=== PATIENT | male | born 1985 | race African-American/Black ===

== ENCOUNTER 2016-06-17 14:40 | Inpatient (IN) | payer OTHER ==
--- NOTE | 2016-06-17 14:48 | PDOC ---
History of Present Illness - History of Present Illness Initial Comments: 06/17/16 16:43 The patient is a 30 year old male, with a significant past medical history of IDDM, hypertension, CHF with low ejection fraction, cardiomyopathy, and GERD, who presents to the emergency department with loss of appetite, nausea, and vomiting for 2 days. He states he woke up yesterday feeling nauseous. The patient states he had not eaten since yesterday, but attempted to drink an ounce of apple juice early this morning and began vomiting shortly after. He reports numerou episodes of vomiting which he states just feels like burning. He denies abdominal pain, but reports burning in his chest and throat from vomiting. The patient reports having an endoscopy about 2 years ago which was negative for ulcers. He denies exertional chest pain, shortness of breath, headache and dizziness. He denies fever, chills, diarrhea and constipation. He denies dysuria, frequency , urgency and hematuria. Allergies: NKDA Past surgical history: none PCP - Dr. Melvin Nance Petrography Teacher - Dr. Randhawa <Lili Gutierrez - Last Filed: 06/17/16 16:43> - General History Source: Patient Exam Limitations: No Limitations <Dawson Barry - Last Filed: 06/18/16 08:32> - General Stated Complaint: Nausea/Vomiting Time Seen by Provider: 06/17/16 14:48 Past History <Lili Gutierrez - Last Filed: 06/17/16 16:43> - Past Medical History Asthma: Yes Cardiac Disorders: Yes CHF: Yes Diabetes: Yes HTN: Yes Suicide Attempt (Hx): No - Surgical History Cardiac Surgery: Yes (defibrillator) - Psycho/Social/Smoking Cessation Hx Anxiety: No Suicidal Ideation: No Smoking History: Never smoked Have you smoked in the past 12 months: No Hx Alcohol Use: Yes (Periodic binging) Drug/Substance Use Hx: (Denied) Substance Use Type: Marijuana Hx Substance Use Treatment: Yes (He indicated that he drinks socially.) <Dawson Barry - Last Filed: 06/18/16 08:32> - Past Medical History Allergies/Adverse Reactions: Allergies Allergy/AdvReac Type Severity Reaction Status Date / Time shellfish derived Allergy Verified 06/17/16 15:39 amoxicillin [Amoxicillin] AdvReac Verified 06/17/16 15:39 allupent Allergy Uncoded 06/17/16 15:39 Home Medications: Ambulatory Orders Amlodipine Besylate [Norvasc -] 10 mg PO DAILY 06/17/16 Aspirin [ASA -] 81 mg PO DAILY 06/17/16 Carvedilol 25 mg PO DAILY 06/17/16 Esomeprazole Magnesium [Nexium 24Hr] 40 mg PO DAILY 06/17/16 Furosemide [Lasix] 80 mg PO DAILY 06/17/16 Hydralazine HCl 100 mg PO BID 06/17/16 Hydrochlorothiazide 25 mg PO DAILY 06/17/16 Magnesium Oxide [Magox 400] 400 mg PO DAILY 06/17/16 Metoclopramide HCl 10 mg PO TID 06/17/16 Nebivolol HCl [Bystolic] 10 mg PO DAILY 06/17/16 Potassium Chloride 20 meq PO DAILY 06/17/16 Review of Systems - Review of Systems Able to Perform ROS?: Yes Comments:: 06/17/16 16:43 CONSTITUTIONAL: No reported: Fever, Chills, Diaphoresis, Generalized Weakness, Malaise, Loss of Appetite HEENT: No reported: Rhinorrhea, Nasal Congestion, Throat Pain, Throat Swelling, Difficulty Swallowing, Mouth Swelling, Ear Pain, Eye Pain, Visual Changes CARDIOVASCULAR: No reported: Chest Pain, Syncope, Palpitations, Irregular Heart Rate, Lightheadedness, Peripheral Edema RESPIRATORY: No reported: Cough, Shortness of Breath, SOB with Exertion, Orthopnea, Wheezing , Stridor, Hemoptysis GASTROINTESTINAL: No reported: Abdominal pain, Abdominal Distension, Nausea, Vomiting, Diarrhea, Constipation, Melena, Hematochezia GENITOURINARY: No reported: Dysuria, Frequency, Urgency, Hesitancy, Flank Pain, Genital Pain MUSCULOSKELETAL: No reported: Myalgia, Arthralgia, Joint Swelling, Back pain, Neck Pain SKIN: No reported: Rash, Itching, Pallor HEMEATOLOGIC/IMMUNOLOGIC: No reported: Easy Bleeding, Easy Bruising, Lymphadenopathy, Frequent infections ENDOCRINE: No reported: Unexplained Weight Gain, Unexplained Weight Loss, Heat Intolerance , Cold Intolerance NEUROLOGIC: No reported: Headache, Focal Weakness, Paresthesias, Vertigo, Lightheadedness, Unsteady Gait, Seizure, Mental Status Changes, Incontinence PSYCHIATRIC: No reported: Anxiety, Depression <Lili Gutierrez - Last Filed: 06/17/16 16:43> *Physical Exam - Vital Signs Last Vital Signs Temp Pulse Resp BP Pulse Ox 99.1 F 97 H 20 137/70 98 06/17/16 15:00 06/17/16 15:00 06/17/16 15:00 06/17/16 15:00 06/17/16 15:00 - Physical Exam Comments: 06/17/16 16:44 GENERAL: The patient is morbidly obese, awake, alert, and fully oriented, Nontoxic - in no acute distress. HEAD: Normocephalic, atraumatic. EYES: extraocular movements intact, sclera anicteric, conjunctiva clear. ENT: Normal voice, Moist mucous membranes. NECK: Normal range of motion, supple LUNGS: Breath sounds equal, clear to auscultation bilaterally. No wheezes, no rhonchi, no rales. HEART: Regular rate and rhythm, without murmur, rub or gallop. ABDOMEN: Soft, nontender, normoactive bowel sounds. No guarding, no rebound.No CVA tenderness EXTREMITIES: (+) 2+ edema in bilateral lower extremities. Normal range of motion , No clubbing or cyanosis. No cords, erythema, or tenderness. NEUROLOGICAL: No facial assymetry, Normal speech, PSYCH: Normal mood, normal affect. SKIN: Warm, Dry, normal turgor, <Lili Gutierrez - Last Filed: 06/17/16 16:43> ED Treatment Course - Medications Given in the ED: ED Medications Discontinued Medications Generic Name Dose Route Start Last Admin Trade Name Freq PRN Reason Stop Dose Admin Al Hydroxide/Mg Hydroxide 30 ml 06/17/16 15:23 06/17/16 15:54 Mylanta Suspension - PO 06/17/16 15:24 30 ml ONCE ONE Administration Sodium Chloride 1,000 mls @ 1,000 mls/hr 06/17/16 14:49 06/17/16 15:54 Normal Saline - IV 06/17/16 15:48 1,000 mls/hr .Q1H ONE Administration Pantoprazole Sodium 40 mg/ 100 mls @ 200 mls/hr 06/17/16 15:23 06/17/16 15:54 Sodium Chloride IVPB 06/17/16 15:52 200 mls/hr ONCE ONE Administration Ondansetron HCl 4 mg 06/17/16 14:49 06/17/16 15:54 Zofran Injection IVPB 06/17/16 14:50 4 mg ONCE ONE Administration <Lili Gutierrez - Last Filed: 06/17/16 16:43> - LABORATORY CBC & Chemistry Diagram: 06/17/16 15:55 06/17/16 15:55 <Dawson Barry - Last Filed: 06/18/16 08:32> Medical Decision Making - Medical Decision Making 06/17/16 15:27 30y M hx of htn, gastritis, chf, presents with complaint of 1 day of naausea/ vomiting/ burning pain c/w with prior episdoes of same - had been evlauted by GI in the past and had endoscopy. denies any fever/chills, diarrhea, abd pain. on exam pt in no distress, abd soft nontender suspect gastritis, ?pancreatitis no tenderness to suggest acute intrabdominal process will obtain labs will give protonix, maalox, fluids 06/17/16 17:05 labs reviewed pt states he is feeling better lipase noted slightly above normal, however the pt denies any current pain. ? possible early pancreatitis discussed with the pt of nasir barry for further management or can PO challenge and see how he does - the pt states he would like to trial PO and see how he does. the pt was signed out out to dr. silva to reassess the patient <Dawson Barry - Last Filed: 06/18/16 08:32> *DC/Admit/Observation/Transfer - Attestations Scribe Attestion: 06/17/16 16:44 Documentation prepared by Lili Gutierrez, acting as medical assembler for Dawson Barry MD, <Lili Gutierrez - Last Filed: 06/17/16 16:43> <Dawson Barry - Last Filed: 06/18/16 08:32> Diagnosis at time of Disposition: Pancreatitis - Discharge Dispostion Condition at time of disposition: Stable
[2016-06-17] MEDS ORDERED: ONDANSETRON 4 MG/2 ML VIAL IVPB ONE ×2 (14:49→18:47)
[2016-06-17] MEDS ORDERED: SODIUM CHLORIDE 1,000 ML IV ONE (14:49)
[2016-06-17] MEDS ORDERED: PANTOPRAZOLE SODIUM 40 MG in SODIUM CHLORIDE 100 ML IVPB ONE (15:23)
[2016-06-17] MEDS ORDERED: MAG HYDROX/AL HYDROX/SIMETH 355 ML ORAL.SUSP PO ONE (15:23)
[2016-06-17] MEDS ORDERED: MAG HYDROX/AL HYDROX/SIMETH 30 ML UNIT-DOSE CUP ONE ×2 (15:48→15:51)
[2016-06-17] MEDS ORDERED: PANTOPRAZOLE SODIUM 100 ML IVPB ONE (15:48)
[2016-06-17] MEDS ORDERED: ONDANSETRON 4 MG/2 ML VIAL ONE ×2 (15:48→18:50)
[2016-06-17 16:47] LABS: BASOPHIL 0.4 % (0-2.0); EOSINOPHIL 0.2 % (0-4.5); MCH 28.2 pg (25.7-33.7); MCHC 33.1 g/dl (32.0-35.9); MEAN CELL VOLUME 85.4 fl (80-96); MEAN PLT VOLUME 8.3 fl (7.5-11.1); NEUTROPHILS 81.2 % (42.8-82.8); PLATELET COUNT 243 K/MM3 (134-434); RDW 13.6 % (11.9-15.9); WHITE BLOOD COUNT 11.1 K/mm3 (4.0-10.0)
[2016-06-17 17:20] LABS: ALBUMIN 3.1 g/dl (3.4-5.0); ANION GAP 14 (8-16); CALCIUM 9.2 mg/dL (8.5-10.1); CO2 28 mmol/L (21-32); CREATININE 1.3 mg/dL (0.7-1.3); GLUCOSE,RANDOM 256 mg/dL (74-106); SGOT/AST 14 U/L (15-37); SGPT/ALT 12 U/L (12-78)
[2016-06-17 17:21] LABS: ALK PHOS 109 U/L (45-117); BILIRUBIN,TOTAL 0.6 mg/dL (0.2-1.0); TOT PROT 8.9 g/dl (6.4-8.2)
--- NOTE | 2016-06-17 19:23 | PDOC ---
*Physical Exam - Vital Signs Last Vital Signs Temp Pulse Resp BP Pulse Ox 99.1 F 97 H 20 137/70 98 06/17/16 15:00 06/17/16 15:00 06/17/16 15:00 06/17/16 15:00 06/17/16 15:00 ED Treatment Course - LABORATORY CBC & Chemistry Diagram: 06/17/16 15:55 06/17/16 15:55 - ADDITIONAL ORDERS Additional order review: Laboratory Results 06/17/16 15:55 Sodium 135 L Potassium 4.2 Chloride 93 L Carbon Dioxide 28 Anion Gap 14 BUN 20 H Creatinine 1.3 Creat Clearance w eGFR > 60 Random Glucose 256 H D Calcium 9.2 Total Bilirubin 0.6 AST 14 L D ALT 12 Alkaline Phosphatase 109 Total Protein 8.9 H Albumin 3.1 L Lipase 616 H 06/17/16 15:55 RBC 4.49 MCV 85.4 MCHC 33.1 RDW 13.6 MPV 8.3 Neutrophils % 81.2 Lymphocytes % 11.5 Monocytes % 6.7 Eosinophils % 0.2 D Basophils % 0.4 - RADIOLOGY Radiology Studies Ordered: Category Date Time Status ABDOMEN US -LIMITED [US] Stat Ultrasound 06/17/16 19:13 Ordered - Medications Given in the ED: ED Medications Discontinued Medications Generic Name Dose Route Start Last Admin Trade Name Freq PRN Reason Stop Dose Admin Al Hydroxide/Mg Hydroxide 30 ml 06/17/16 15:23 06/17/16 15:54 Mylanta Suspension - PO 06/17/16 15:24 30 ml ONCE ONE Administration Sodium Chloride 1,000 mls @ 1,000 mls/hr 06/17/16 14:49 06/17/16 15:54 Normal Saline - IV 06/17/16 15:48 1,000 mls/hr .Q1H ONE Administration Pantoprazole Sodium 40 mg/ 100 mls @ 200 mls/hr 06/17/16 15:23 06/17/16 15:54 Sodium Chloride IVPB 06/17/16 15:52 200 mls/hr ONCE ONE Administration Ondansetron HCl 4 mg 06/17/16 14:49 06/17/16 15:54 Zofran Injection IVPB 06/17/16 14:50 4 mg ONCE ONE Administration Ondansetron HCl 4 mg 06/17/16 18:47 06/17/16 18:56 Zofran Injection IVPB 06/17/16 18:48 4 mg ONCE ONE Administration Medical Decision Making - Medical Decision Making 06/17/16 19:22 Sign-out received from outgoing Emergency Physician Dr. Barry Pt interviewed and examined Ancillary studies reviewed Case discussed in detail with oncoming Emergency Physician including history, physical exam and ancillary studies. Vital Signs Temp Pulse Resp BP Pulse Ox 99.1 F 97 H 20 137/70 98 06/17/16 15:00 06/17/16 15:00 06/17/16 15:00 06/17/16 15:00 06/17/16 15:00 Reassessed patient. Continues to not tolerate PO. Will admit for pancreatitis. Case discussed with Dr. Brenner. She accepts patient for med/surg admission. Case discussed in detail with admitting physician including history, physical exam and ancillary studies. Admitting physician has assumed care for the patient, will follow all pending diagnostics and will complete the evaluation and treatment. *DC/Admit/Observation/Transfer Diagnosis at time of Disposition: Pancreatitis Qualifiers: Chronicity: acute Pancreatitis type: other Acute pancreatitis complication: unspecified Qualified Code(s): K85.80 - Other acute pancreatitis without necrosis or infection - Discharge Dispostion Condition at time of disposition: Stable Admit: Yes - Referrals Referrals: Gustabo Nance [Primary Care Provider] - - Patient Instructions - Post Discharge Activity
[2016-06-17 20:42] LABS: URINE APPEARANCE CLEAR; URINE BILIRUBIN NEGATIVE (NEGATIVE); URINE BLOOD NEGATIVE (NEGATIVE); URINE COLOR YELLOW; URINE GLUCOSE (UA) 2+ (NEGATIVE); URINE KETONE NEGATIVE (NEGATIVE); URINE LEUK ESTERASE NEGATIVE (NEGATIVE); URINE NITRITE NEGATIVE (NEGATIVE); URINE UROBILINOGEN NEGATIVE E.U./dl (0.2-1.0)
[2016-06-17 20:46] LABS: URINE PROTEIN 3+ (NEGATIVE)
[2016-06-17 20:47] LABS: URINE HYALINE CAST 43 /lpf; URINE MUCUS RARE; URINE RBC 8 /hpf (0-3); URINE WBC 2 /hpf (3-5)
[2016-06-18] MEDS: hydrALAZINE HCL 50 MG TABLET (FP) PO SCH ×3 (01:54→21:20)
[2016-06-18] MEDS: METRONIDAZOLE 500 MG PREMIXED 100 ML IVPB SCH ×3 (01:55→17:46)
[2016-06-18] MEDS: DEXTROSE 5%-0.45% SALINE 1,000 ML IV SCH ×2 (01:55→11:34)
[2016-06-18 04:05] VITALS: BMI 45.8
[2016-06-18] MEDS ORDERED: INSULIN (NOVOLOG) ASPART 100 UNITS/ML 10ML VIAL ONE ×2 (05:56→08:04)
[2016-06-18] MEDS: INSULIN SLIDING SCALE (NOVOLOG) 1 VIAL SQ SCH ×4 (06:10→22:16)
[2016-06-18] MEDS: ONDANSETRON 4 MG/2 ML VIAL IVPB PRN ×2 (06:57→13:01)
[2016-06-18] MEDS ORDERED: PT OWN MED DRAWER 7, Y5N ONE ×2 (08:04→09:58)
[2016-06-18] MEDS ORDERED: LACTATED RINGERS SOLUTION 1,000 ML IV SCH ×2 (09:15→16:15)
[2016-06-18] MEDS ORDERED: hydrALAZINE HCL 50 MG TABLET (FP) PO SCH (10:00)
[2016-06-18] MEDS: ASPIRIN 81 MG CHEWABLE TABLETS PO SCH (10:09)
[2016-06-18] MEDS: MAGNESIUM OXIDE 400 MG TABLET (FP) PO SCH (10:09)
[2016-06-18] MEDS: FUROSEMIDE 40 MG TABLET (FP) PO SCH (10:09)
[2016-06-18] MEDS: CARVEDILOL 25 MG TABLET (FP) PO SCH (10:10)
[2016-06-18] MEDS: LEVOFLOXACIN 500 MG IVPB 100 ML IVPB SCH (10:10)
[2016-06-18] MEDS: amLODIPine BESYLATE 10 MG TABLET (FP) PO SCH (10:10)
[2016-06-18] MEDS: PANTOPRAZOLE 40 MG TABLET (FP) PO SCH (10:10)
[2016-06-18] MEDS: POTASSIUM CHLORIDE TABS 20 MEQ TABLET.ER (FP) PO SCH (10:10)
[2016-06-18] MEDS: HEPARIN NA (PORCINE) 5,000 UNITS/ML 1ML VIAL SQ SCH ×2 (10:11→21:20)
[2016-06-18 10:18] LABS: BILIRUBIN,DIRECT 0.2 mg/dL (0.0-0.2); BILIRUBIN,TOTAL 0.4 mg/dL (0.2-1.0); TOT PROT 8.6 g/dl (6.4-8.2)
[2016-06-18] MEDS: NEBIVOLOL 10 MG TABLET (FP) PO SCH (10:53)
--- NOTE | 2016-06-18 15:33 | CONSULT ---
Consult Consult Specialty:: Podiatry Referred by:: Aubrie Reason for Consultation:: [place] ramos known to me from the wound healing center , he has a partial right hallux amputation with an ulceration - History of Present Illness Chief Complaint: I have an ulcer on my right foot History of Present Illness: The patient is a 30 year old male admitted to [facility], with a significant past medical history of IDDM, hypertension, CHF with low ejection fraction, cardiomyopathy, and GERD, who presents to the emergency department with loss of appetite, nausea, and vomiting for 2 days. He states he woke up yesterday feeling nauseous. The patient states he had not eaten since yesterday, but attempted to drink an ounce of apple juice early this morning and began vomiting shortly after. He reports numerou episodes of vomiting which he states just feels like burning. He denies abdominal pain, but reports burning in his chest and throat from vomiting. The patient reports having an endoscopy about 2 years ago which was negative for ulcers. - History Source History Provided By: Patient Limitations to Obtaining History: No Limitations - Past Medical History Cardio/Vascular: Yes: CHF, HTN, Other (Morbid Obesity) Pulmonary: Yes: Asthma, Sleep Apnea Gastrointestinal: Yes: GERD Endocrine: Yes: Diabetes Mellitus, Other (morbid obesity) - Past Surgical History Past Surgical History: Yes: AICD (R Knee ORIF), Tonsillectomy - Alcohol/Substance Use Hx Alcohol Use: Yes (Periodic binging) History of Substance Use: reports: Marijuana Date of Last Use: 06/04/13 - Smoking History Smoking history: Never smoked Have you smoked in the past 12 months: No If you are a former smoker, when did you quit?: 7 years ago - Social History Usual Living Arrangement: Other ("homeless") Occupation: works at [employer] History of Recent Travel: No Home Medications - Allergies Allergies/Adverse Reactions: Allergies Allergy/AdvReac Type Severity Reaction Status Date / Time shellfish derived Allergy Verified 06/17/16 15:39 amoxicillin [Amoxicillin] AdvReac Verified 06/17/16 15:39 allupent Allergy Uncoded 06/17/16 15:39 - Home Medications Home Medications: Ambulatory Orders Amlodipine Besylate [Norvasc -] 10 mg PO DAILY 06/17/16 Aspirin [ASA -] 81 mg PO DAILY 06/17/16 Carvedilol 25 mg PO DAILY 06/17/16 Esomeprazole Magnesium [Nexium 24Hr] 40 mg PO DAILY 06/17/16 Furosemide [Lasix] 80 mg PO DAILY 06/17/16 Hydralazine HCl 100 mg PO BID 06/17/16 Hydrochlorothiazide 25 mg PO DAILY 06/17/16 Magnesium Oxide [Magox 400] 400 mg PO DAILY 06/17/16 Metoclopramide HCl 10 mg PO TID 06/17/16 Nebivolol HCl [Bystolic] 10 mg PO DAILY 06/17/16 Potassium Chloride 20 meq PO DAILY 06/17/16 Family Disease History - Family Disease History Family Disease History: Heart Disease: Mother (HTN) Review of Systems - Review of Systems Constitutional: reports: No Symptoms Respiratory: reports: No Symptoms Integumentary: reports: Wound (distal right first ray) Physical Exam Vital Signs: Vital Signs Temperature 98.2 F 06/18/16 13:47 Pulse Rate 91 H 06/18/16 13:47 Respiratory Rate 20 06/18/16 13:47 Blood Pressure 166/92 06/18/16 13:47 O2 Sat by Pulse Oximetry (%) 96 06/18/16 09:00 Constitutional: Yes: Well Nourished, No Distress, Calm Extremities: Yes: Amputation (distal right hallux with no clinical signs of infection full thickness) Edema: No Wound/Incision: Yes: Clean/Dry, Dressing Removed (full thickness ulcer right hallux S/P amoutation) Neurological: Yes: WNL, Alert, Oriented ...Motor Strength: WNL Psychiatric: Yes: WNL, Alert, Oriented Problem List - Problems (1) Type 2 diabetes mellitus with foot ulcer Code(s): E11.621 - TYPE 2 DIABETES MELLITUS WITH FOOT ULCER L97.509 - NON-PRESSURE CHRONIC ULCER OTH PRT UNSP FOOT W UNSP SEVERITY (2) Essential (primary) hypertension Code(s): I10 - ESSENTIAL (PRIMARY) HYPERTENSION (3) 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
--- NOTE | 2016-06-18 16:19 | CON.GI ---
Consult Consult Specialty:: GASTROENTEROLOGY Referred by:: ELIEL AHTCH MD - History of Present Illness Chief Complaint: NAUSEA History of Present Illness: 30 YEAR OLD DIABETIC, CYCLIC VOMITING SYNDROME, SUBSTANCE ABUSE, MORBIDLY OBESE PATIENT WHO HAS A CHRONIC LEG INFECTION WAS TO HAVE HYPERBARIC APPOINTMENT TODAY WAS ADMITTED WITH NAUSEA AND A MILDLY ELEVATED LIPASE AND AN ABNORMAL PANCREATIC HEAD ON SONOGRAM (LIMITED STUDY0. HE HAS NO COMPLAINTS OF ABDOMINAL PAIN BUT HAS NAUSEA. HE DENIES ANY ALCOHOL CONSUMPTION FOR OVER A WEEK. THE SONOGRAM DOES NOT SHOW GALLSTONES AND HIS TRIGLYCERIDES ARE NORMAL. CURRENTLY HE IS WITHOUT PAIN BUT HAS NAUSEA. HE IS ON LEVAQUIN AND FLAGYL FOR HIS LEG ULCER. - History Source History Provided By: Patient Limitations to Obtaining History: Poor Historian - Past Medical History Cardio/Vascular: Yes: CHF, HTN, Other (Morbid Obesity,ACID) Pulmonary: Yes: Asthma, Sleep Apnea Gastrointestinal: Yes: GERD, Other (CYCLIC VOMITING SYNDROME) Psych: Yes: Addictions Endocrine: Yes: Diabetes Mellitus, Other (morbid obesity) - Past Surgical History Past Surgical History: Yes: AICD (R Knee ORIF), Tonsillectomy - Alcohol/Substance Use Hx Alcohol Use: Yes (Periodic binging) History of Substance Use: reports: Marijuana Date of Last Use: 06/04/13 - Smoking History Smoking history: Never smoked Have you smoked in the past 12 months: No If you are a former smoker, when did you quit?: 7 years ago - Social History Usual Living Arrangement: Other ("homeless") Occupation: works at [employer] History of Recent Travel: No Home Medications - Allergies Allergies/Adverse Reactions: Allergies Allergy/AdvReac Type Severity Reaction Status Date / Time shellfish derived Allergy Verified 06/17/16 15:39 amoxicillin [Amoxicillin] AdvReac Verified 06/17/16 15:39 allupent Allergy Uncoded 06/17/16 15:39 - Home Medications Home Medications: Ambulatory Orders Amlodipine Besylate [Norvasc -] 10 mg PO DAILY 06/17/16 Aspirin [ASA -] 81 mg PO DAILY 06/17/16 Carvedilol 25 mg PO DAILY 06/17/16 Esomeprazole Magnesium [Nexium 24Hr] 40 mg PO DAILY 06/17/16 Furosemide [Lasix] 80 mg PO DAILY 06/17/16 Hydralazine HCl 100 mg PO BID 06/17/16 Hydrochlorothiazide 25 mg PO DAILY 06/17/16 Magnesium Oxide [Magox 400] 400 mg PO DAILY 06/17/16 Metoclopramide HCl 10 mg PO TID 06/17/16 Nebivolol HCl [Bystolic] 10 mg PO DAILY 06/17/16 Potassium Chloride 20 meq PO DAILY 06/17/16 Family Disease History - Family Disease History Family Disease History: Heart Disease: Mother (HTN) Review of Systems - Review of Systems Constitutional: reports: No Symptoms, Loss of Appetite Eyes: reports: No Symptoms HENT: reports: No Symptoms Neck: reports: No Symptoms Cardiovascular: reports: No Symptoms Respiratory: reports: No Symptoms Gastrointestinal: reports: Nausea, Vomiting Genitourinary: reports: No Symptoms Musculoskeletal: reports: No Symptoms Integumentary: reports: Wound Neurological: reports: No Symptoms Hematology/Lymphatic: reports: No Symptoms Psychiatric: reports: No Symptoms Physical Exam-GI Vital Signs: Vital Signs Temperature 98.2 F 06/18/16 13:47 Pulse Rate 91 H 06/18/16 13:47 Respiratory Rate 20 06/18/16 13:47 Blood Pressure 166/92 06/18/16 13:47 O2 Sat by Pulse Oximetry (%) 96 06/18/16 09:00 Constitutional: Yes: Obese Eyes: Yes: Conjunctiva Clear HENT: Yes: Normocephalic Neck: Yes: Supple Cardiovascular: Yes: Regular Rate and Rhythm Respiratory: Yes: Regular Gastrointestinal Inspection: Yes: WNL ...Auscultate: Yes: Normoactive Bowel Sounds ...Palpate: Yes: Soft Extremities: Yes: WNL, Other (WOUND DRESSINGS) Labs: Laboratory Tests 06/17/16 06/17/16 06/17/16 15:55 15:55 20:37 WBC 11.1 H RBC 4.49 Hgb 12.7 Hct 38.3 MCV 85.4 MCHC 33.1 RDW 13.6 Plt Count 243 D MPV 8.3 Neutrophils % 81.2 Lymphocytes % 11.5 Monocytes % 6.7 Eosinophils % 0.2 D Basophils % 0.4 Sodium 135 L Potassium 4.2 Chloride 93 L Carbon Dioxide 28 Anion Gap 14 BUN 20 H Creatinine 1.3 Creat Clearance w eGFR > 60 Random Glucose 256 H D Calcium 9.2 Total Bilirubin 0.6 AST 14 L D ALT 12 Total Protein Albumin 3.1 L Triglycerides Cholesterol Total LDL Cholesterol HDL Cholesterol Lipase 616 H Urine Bilirubin Negative 06/18/16 09:36 WBC RBC Hgb Hct MCV MCHC RDW Plt Count MPV Neutrophils % Lymphocytes % Monocytes % Eosinophils % Basophils % Sodium Potassium Chloride Carbon Dioxide Anion Gap BUN Creatinine Creat Clearance w eGFR Random Glucose Calcium Total Bilirubin AST ALT Total Protein 8.6 H Albumin 3.0 L Triglycerides 106 Cholesterol 169 D Total LDL Cholesterol 107 H D HDL Cholesterol 43 D Lipase 327 Urine Bilirubin Imaging - Results Ultrasound: Image Reviewed Problem List - Problems (1) Pancreatitis Assessment/Plan: MILD PANCREATITIS BY EDWARDO CRITERIA, SEEMS RESOLVING, DECREASE IVF TO 150 CC/ HR WILL RE ASCESS IN AM, NPO EXCEPT ICE CHIPS, PRN REGLAN, REPEAT LABS, CT SCAN IN AM Code(s): K85.90 - ACUTE PANCREATITIS WITHOUT NECROSIS OR INFECTION, UNSP Qualifiers: Chronicity: acute Pancreatitis type: other Acute pancreatitis complication: unspecified Qualified Code(s): K85.80 - Other acute pancreatitis without necrosis or infection; K85.8 - Other acute pancreatitis (2) Cyclical vomiting Assessment/Plan: NAUSEA MAY BE RELATED TO THIS Code(s): G43.A0 - CYCLICAL VOMITING, NOT INTRACTABLE (3) Morbid obesity Code(s): E66.01 - MORBID (SEVERE) OBESITY DUE TO EXCESS CALORIES (4) Nausea and vomiting Assessment/Plan: ABOVE, PRN REGLAN, IV PROTONIX Code(s): R11.2 - NAUSEA WITH VOMITING, UNSPECIFIED
--- NOTE | 2016-06-18 16:27 | HP ---
Admitting History and Physical - Admission Chief Complaint: Abdominal pain History of Present Illness: Pt is a morbidly obese 30 y/o poor historian male w/ multiple medial problems including HTN, CHF, cardiomyopathy, S/P ACID, diabetes, GERD and cyclic vomiting. Pt presented to the ER bc of abdominal pain(generalized), nausea and unable to tolerate PO intake for the past 2 days. Pt denies any fever/chills. Pt also found to have elevated amylase/lipase in the ER. History Source: Patient - Past Medical History Cardiovascular: Yes: CHF, HTN, Other (Morbid Obesity) Pulmonary: Yes: Asthma, Sleep Apnea Gastrointestinal: Yes: GERD Endocrine: Yes: Diabetes Mellitus, Other (morbid obesity) - Past Surgical History Past Surgical History: Yes: AICD (R Knee ORIF), Tonsillectomy Additional Past Surgical History: Rt knee ORIF - Smoking History Smoking history: Never smoked Have you smoked in the past 12 months: No If you are a former smoker, when did you quit?: 7 years ago - Alcohol/Substance Use Hx Alcohol Use: Yes (Periodic binging) History of Substance Use: reports: Marijuana Date of Last Use: 06/04/13 - Social History Occupation: works at [employer] History of Recent Travel: No Home Medications - Allergies Allergies/Adverse Reactions: Allergies Allergy/AdvReac Type Severity Reaction Status Date / Time shellfish derived Allergy Verified 06/17/16 15:39 amoxicillin [Amoxicillin] AdvReac Verified 06/17/16 15:39 allupent Allergy Uncoded 06/17/16 15:39 - Home Medications Home Medications: Ambulatory Orders Amlodipine Besylate [Norvasc -] 10 mg PO DAILY 06/17/16 Aspirin [ASA -] 81 mg PO DAILY 06/17/16 Carvedilol 25 mg PO DAILY 06/17/16 Esomeprazole Magnesium [Nexium 24Hr] 40 mg PO DAILY 06/17/16 Furosemide [Lasix] 80 mg PO DAILY 06/17/16 Hydralazine HCl 100 mg PO BID 06/17/16 Hydrochlorothiazide 25 mg PO DAILY 06/17/16 Magnesium Oxide [Magox 400] 400 mg PO DAILY 06/17/16 Metoclopramide HCl 10 mg PO TID 06/17/16 Nebivolol HCl [Bystolic] 10 mg PO DAILY 06/17/16 Potassium Chloride 20 meq PO DAILY 06/17/16 Family Disease History - Family Disease History Family History: Unremarkable Family Disease History: Heart Disease: Mother (HTN) Review of Systems - Review of Systems Constitutional: reports: Lethargy, Loss of Appetite, Weakness HENT: reports: No Symptoms Neck: reports: No Symptoms Cardiovascular: reports: No Symptoms Respiratory: reports: No Symptoms Gastrointestinal: reports: Abdominal Pain, Nausea, Vomiting Genitourinary: reports: No Symptoms Physical Examination Vital Signs: Vital Signs Temperature 98.2 F 06/18/16 13:47 Pulse Rate 91 H 06/18/16 13:47 Respiratory Rate 20 06/18/16 13:47 Blood Pressure 166/92 06/18/16 13:47 O2 Sat by Pulse Oximetry (%) 96 06/18/16 09:00 Constitutional: Yes: Obese HENT: Yes: WNL Neck: Yes: Supple Cardiovascular: Yes: WNL, Regular Rate and Rhythm, Murmur Respiratory: Yes: WNL, Regular, CTA Bilaterally Gastrointestinal: Yes: WNL, Normal Bowel Sounds, Soft, Abdomen, Obese Musculoskeletal: Yes: WNL Extremities: Yes: Other ((+) chronic venous stasis) Edema: No Neurological: Yes: WNL, Alert, Oriented Problem List - Problems (1) Pancreatitis Assessment/Plan: Check ct scan abd Trend amylase/lipase NPO Cont IVF GI consult Code(s): K85.90 - ACUTE PANCREATITIS WITHOUT NECROSIS OR INFECTION, UNSP Qualifiers: Chronicity: acute Pancreatitis type: other Acute pancreatitis complication: unspecified Qualified Code(s): K85.80 - Other acute pancreatitis without necrosis or infection; K85.8 - Other acute pancreatitis (2) Hypertension Assessment/Plan: BP accelerated Unclear if pt is complaint w/ his medications Cont antihypertensives and monitor Code(s): I10 - ESSENTIAL (PRIMARY) HYPERTENSION (3) Type 2 diabetes mellitus with foot ulcer Assessment/Plan: Cont sliding scal w/ coverage due to NPO Code(s): E11.621 - TYPE 2 DIABETES MELLITUS WITH FOOT ULCER L97.509 - NON-PRESSURE CHRONIC ULCER OTH PRT UNSP FOOT W UNSP SEVERITY (4) CHF (congestive heart failure) Assessment/Plan: Cont lasix Monitor electrolytes Code(s): I50.9 - HEART FAILURE, UNSPECIFIED (5) Cyclical vomiting Code(s): G43.A0 - CYCLICAL VOMITING, NOT INTRACTABLE (6) Diabetes mellitus Assessment/Plan: Cont sliding scal w/ insulin Code(s): E11.9 - TYPE 2 DIABETES MELLITUS WITHOUT COMPLICATIONS (7) Morbid obesity Code(s): E66.01 - MORBID (SEVERE) OBESITY DUE TO EXCESS CALORIES
[2016-06-18] MEDS: METOCLOPRAMIDE HCL INJECTION 10 MG/2 ML VIAL IVPB PRN (16:55)
[2016-06-19] MEDS: morphine CARPU-JECT 2 MG/1 ML DISP.SYRIN IVPUSH PRN ×3 (00:38→21:52)
[2016-06-19] MEDS: ONDANSETRON 4 MG/2 ML VIAL IVPB PRN ×2 (00:39→09:58)
[2016-06-19] MEDS: METRONIDAZOLE 500 MG PREMIXED 100 ML IVPB SCH ×3 (01:19→18:08)
[2016-06-19] MEDS: INSULIN SLIDING SCALE (NOVOLOG) 1 VIAL SQ SCH ×4 (06:29→21:49)
[2016-06-19] MEDS: METOCLOPRAMIDE HCL INJECTION 10 MG/2 ML VIAL IVPB PRN (06:52)
[2016-06-19 07:38] LABS: BASOPHIL 0.4 % (0-2.0); EOSINOPHIL 0.6 % (0-4.5); MCH 28.1 pg (25.7-33.7); MCHC 32.9 g/dl (32.0-35.9); MEAN CELL VOLUME 85.7 fl (80-96); MEAN PLT VOLUME 8.1 fl (7.5-11.1); NEUTROPHILS 78.8 % (42.8-82.8); PLATELET COUNT 212 K/MM3 (134-434); RDW 13.6 % (11.9-15.9); WHITE BLOOD COUNT 13.2 K/mm3 (4.0-10.0)
[2016-06-19 09:14] LABS: ANION GAP 12 (8-16); BILIRUBIN,TOTAL 0.6 mg/dL (0.2-1.0); CALCIUM 8.6 mg/dL (8.5-10.1); CO2 29 mmol/L (21-32); GLUCOSE,RANDOM 175 mg/dL (74-106); SGOT/AST 15 U/L (15-37); SGPT/ALT 12 U/L (12-78); TOT PROT 8.2 g/dl (6.4-8.2)
[2016-06-19 09:18] LABS: ALK PHOS 92 U/L (45-117)
[2016-06-19] MEDS ORDERED: PT OWN MED DRAWER 7, Y5N ONE (09:41)
[2016-06-19] MEDS: HEPARIN NA (PORCINE) 5,000 UNITS/ML 1ML VIAL SQ SCH ×2 (10:00→21:43)
[2016-06-19] MEDS: MAGNESIUM OXIDE 400 MG TABLET (FP) PO SCH (10:00)
[2016-06-19] MEDS: amLODIPine BESYLATE 10 MG TABLET (FP) PO SCH (11:00)
[2016-06-19] MEDS: POTASSIUM CHLORIDE TABS 20 MEQ TABLET.ER (FP) PO SCH (11:00)
[2016-06-19] MEDS: ASPIRIN 81 MG CHEWABLE TABLETS PO SCH (11:01)
[2016-06-19] MEDS: PANTOPRAZOLE 40 MG TABLET (FP) PO SCH (11:01)
[2016-06-19] MEDS: CARVEDILOL 25 MG TABLET (FP) PO SCH (11:01)
[2016-06-19] MEDS: hydrALAZINE HCL 50 MG TABLET (FP) PO SCH ×2 (11:01→21:48)
[2016-06-19] MEDS: NEBIVOLOL 10 MG TABLET (FP) PO SCH (11:02)
[2016-06-19] MEDS: FUROSEMIDE 40 MG TABLET (FP) PO SCH (11:03)
[2016-06-19] MEDS: LEVOFLOXACIN 500 MG IVPB 100 ML IVPB SCH (12:22)
--- NOTE | 2016-06-19 12:28 | CONSULT ---
Consult Consult Specialty:: infectious diseases Referred by:: - History of Present Illness Chief Complaint: ulcer on the rt foot History of Present Illness: 30 year old male , with t past medical history of IDDM, hypertension, CHF with low ejection fraction, cardiomyopathy, and GERD, came to the hospital for loss of appetite, nausea, and vomiting for 2 days. Patient woke up yesterday feeling nauseous. patient had not eaten for some time and when he tried to have apple juice he started having nausea and vomiting. patient ulcer ahs been there for some time and is on levaquin and flagyl patient has history of substance abuse i have seen seen both legs I am more worried about his rt leg wounds - History Source History Provided By: Patient - Past Medical History Cardio/Vascular: Yes: CHF, HTN, Other (Morbid Obesity) Pulmonary: Yes: Asthma, Sleep Apnea Gastrointestinal: Yes: GERD Psych: Yes: Addictions Endocrine: Yes: Diabetes Mellitus, Other (morbid obesity) - Past Surgical History Past Surgical History: Yes: AICD (R Knee ORIF), Tonsillectomy - Alcohol/Substance Use Hx Alcohol Use: Yes (Periodic binging) History of Substance Use: reports: Marijuana Date of Last Use: 06/04/13 - Smoking History Smoking history: Never smoked Have you smoked in the past 12 months: No If you are a former smoker, when did you quit?: 7 years ago - Social History Usual Living Arrangement: Other ("homeless") Occupation: works at [employer] History of Recent Travel: No Home Medications - Allergies Allergies/Adverse Reactions: Allergies Allergy/AdvReac Type Severity Reaction Status Date / Time shellfish derived Allergy Verified 06/17/16 15:39 amoxicillin [Amoxicillin] AdvReac Verified 06/17/16 15:39 allupent Allergy Uncoded 06/17/16 15:39 - Home Medications Home Medications: Ambulatory Orders Amlodipine Besylate [Norvasc -] 10 mg PO DAILY 06/17/16 Aspirin [ASA -] 81 mg PO DAILY 06/17/16 Carvedilol 25 mg PO DAILY 06/17/16 Esomeprazole Magnesium [Nexium 24Hr] 40 mg PO DAILY 06/17/16 Furosemide [Lasix] 80 mg PO DAILY 06/17/16 Hydralazine HCl 100 mg PO BID 06/17/16 Hydrochlorothiazide 25 mg PO DAILY 06/17/16 Magnesium Oxide [Magox 400] 400 mg PO DAILY 06/17/16 Metoclopramide HCl 10 mg PO TID 06/17/16 Nebivolol HCl [Bystolic] 10 mg PO DAILY 06/17/16 Potassium Chloride 20 meq PO DAILY 06/17/16 Family Disease History - Family Disease History Family Disease History: Heart Disease: Mother (HTN) Review of Systems - Review of Systems Constitutional: reports: No Symptoms Eyes: reports: No Symptoms HENT: reports: No Symptoms Neck: reports: No Symptoms Cardiovascular: reports: No Symptoms Respiratory: reports: No Symptoms Gastrointestinal: reports: Abdominal Pain, Nausea, Vomiting Genitourinary: reports: No Symptoms Breasts: reports: No Symptoms Reported Musculoskeletal: reports: No Symptoms Integumentary: reports: No Symptoms Neurological: reports: No Symptoms Endocrine: reports: No Symptoms Hematology/Lymphatic: reports: No Symptoms Psychiatric: reports: No Symptoms Physical Exam Vital Signs: Vital Signs Temperature 98.2 F 06/19/16 10:49 Pulse Rate 80 06/19/16 10:49 Respiratory Rate 24 06/19/16 10:49 Blood Pressure 170/100 06/19/16 10:49 O2 Sat by Pulse Oximetry (%) 95 06/18/16 20:36 Constitutional: Yes: Obese (morbid), Other Eyes: Yes: Conjunctiva Clear HENT: Yes: Atraumatic, Normocephalic Neck: Yes: Supple Cardiovascular: Yes: Regular Rate and Rhythm Respiratory: Yes: Regular, Poor Air Entry (bases) Gastrointestinal: Yes: Soft Musculoskeletal: Yes: Other Wound/Incision: Yes: Other (rt toe ampputation site has healed well he has left multiple small wounds which ahve broken the skin) Labs: CBC, BMP 06/19/16 06:10 06/19/16 06:10 Assessment/Plan Problem List - Problems (1) Pancreatitis Assessment/Plan: MILD PANCREATITIS BY EDWARDO CRITERIA, SEEMS RESOLVING, DECREASE IVF TO 150 CC/ HR WILL RE ASCESS IN AM, NPO EXCEPT ICE CHIPS, PRN REGLAN, REPEAT LABS, CT SCAN IN AM Code(s): K85.90 - ACUTE PANCREATITIS WITHOUT NECROSIS OR INFECTION, UNSP Qualifiers: Chronicity: acute Pancreatitis type: other Acute pancreatitis complication: unspecified Qualified Code(s): K85.80 - Other acute pancreatitis without necrosis or infection; K85.8 - Other acute pancreatitis (2) Cyclical vomiting Assessment/Plan: NAUSEA MAY BE RELATED TO THIS Code(s): G43.A0 - CYCLICAL VOMITING, NOT INTRACTABLE (3) Morbid obesity Code(s): E66.01 - MORBID (SEVERE) OBESITY DUE TO EXCESS CALORIES (4) Nausea and vomiting Assessment/Plan: ABOVE, PRN REGLAN, IV PROTONIX Code(s): R11.2 - NAUSEA WITH VOMITING, UNSPECIFIED (5) Type 2 diabetes mellitus with foot ulcer Code(s): E11.621 - TYPE 2 DIABETES MELLITUS WITH FOOT ULCER L97.509 - NON-PRESSURE CHRONIC ULCER OTH PRT UNSP FOOT W UNSP SEVERITY (6) Essential (primary) hypertension Code(s): I10 - ESSENTIAL (PRIMARY) HYPERTENSION (7) Cardiomyopathy associated with type 1 diabetes mellitus Code(s): E10.59 - TYPE 1 DIABETES MELLITUS WITH OTH CIRCULATORY COMPLICATIONS I43 - CARDIOMYOPATHY IN DISEASES CLASSIFIED ELSEWHERE plan continue abx as per gi i am not going to start anything on him will order xray of the left foot
[2016-06-19] MEDS: COLLAGENASE CLOSTRIDIUM HIST. 30 GRAMS TUBE TP SCH (13:00)
[2016-06-19] MEDS ORDERED: hydrALAZINE HCL 50 MG TABLET (FP) PO ONE (14:30)
[2016-06-19] MEDS ORDERED: DEXTROSE 5%-0.45% SALINE 1,000 ML IV SCH (14:30)
--- NOTE | 2016-06-19 16:22 | PN ---
GI Progress Note Subjective: GASTROENTEROLOGY HAS NOT GOTTEN OUT OF BED, GETTING MORPHINE , ON IV ANTIBIOTICS ASKED PATIENT TO GET OUT OF BED AND MOVE AROUND, SIT IN CHAIR ETC. HE ASKED ME WHY AND I EXPLAINED THAT IT WOULD HELP WITH HIS GI MOTILITY AND HIS RESPONSE WAS THAT HE THINKS A HOSPITAL IS USE TO STAY IN BED AND SLEEP ALL DAY. IF HE HAS TO GET UP HE MIGHT WELL GO HOME. - Objective Vital Signs: Vital Signs Temperature 98.3 F 06/19/16 14:36 Pulse Rate 85 06/19/16 14:49 Respiratory Rate 20 06/19/16 14:49 Blood Pressure 162/108 06/19/16 14:49 O2 Sat by Pulse Oximetry (%) 93 L 06/19/16 11:00 Constitutional: Calm, Obese, Other (SLEEPING) Eyes: Yes: WNL HENT: Yes: WNL Neck: Yes: WNL Cardiovascular: Yes: WNL Respiratory: Yes: WNL Gastrointestinal Inspection: Yes: WNL ...Auscultate: Yes: Normoactive Bowel Sounds ...Palpate: Yes: Soft Extremities: Yes: WNL, Other (WOUNDS) Labs: CBC, BMP 06/19/16 06:10 06/19/16 06:10 Problem List - Problems (1) Cyclical vomiting Assessment/Plan: CONTINUE REGLAN PRN, STOP NARCOTICS, CALCIUM CHANNEL BLOCKERS WILL MAKE THIS WORSE TRY LOW FAT DIET OOB TO CHAIR EAT AT TABLE NOT IN BED CT SCAN D/MISA HE WAS DID NOT WANT ORAL CONTRAST Code(s): G43.A0 - CYCLICAL VOMITING, NOT INTRACTABLE (2) Pancreatitis Assessment/Plan: RESOLVED Code(s): K85.90 - ACUTE PANCREATITIS WITHOUT NECROSIS OR INFECTION, UNSP Qualifiers: Chronicity: acute Pancreatitis type: other Acute pancreatitis complication: unspecified Qualified Code(s): K85.80 - Other acute pancreatitis without necrosis or infection; K85.8 - Other acute pancreatitis (3) Morbid obesity Code(s): E66.01 - MORBID (SEVERE) OBESITY DUE TO EXCESS CALORIES (4) Nausea and vomiting Code(s): R11.2 - NAUSEA WITH VOMITING, UNSPECIFIED
[2016-06-19] MEDS ORDERED: INSULIN (NOVOLOG) ASPART 100 UNITS/ML 10ML VIAL ONE (21:00)
--- NOTE | 2016-06-19 23:09 | PN ---
Progress Note, Physician History of Present Illness: Pt seems to be indifferent to questions and just wants to sleep - Current Medication List Current Medications: Active Medications Amlodipine Besylate (Norvasc -) 10 mg PO DAILY [facility] Last Admin: 06/19/16 11:00 Dose: 10 mg Aspirin (Asa -) 81 mg PO DAILY [facility] Last Admin: 06/19/16 11:01 Dose: 81 mg Carvedilol (Coreg -) 25 mg PO DAILY [facility] Last Admin: 06/19/16 11:01 Dose: 25 mg Collagenase (Santyl -) 1 applic TP DAILY [facility] Last Admin: 06/19/16 13:00 Dose: 1 applic Furosemide (Lasix -) 80 mg PO DAILY [facility] Last Admin: 06/19/16 11:03 Dose: 80 mg Heparin Sodium (Porcine) (Heparin -) 5,000 unit SQ BID [facility] Last Admin: 06/19/16 21:43 Dose: 5,000 unit Hydralazine HCl (Apresoline -) 100 mg PO BID [facility] Last Admin: 06/19/16 21:48 Dose: 100 mg Metronidazole (Flagyl 500mg Premixed Ivpb -) 100 mls @ 100 mls/hr IVPB Q8H-IV [facility] Last Admin: 06/19/16 18:08 Dose: 100 mls/hr Levofloxacin (Levaquin 500 Mg Premixed Ivpb -) 100 mls @ 100 mls/hr IVPB DAILY [facility] Last Admin: 06/19/16 12:22 Dose: 100 mls/hr Insulin Aspart (Novolog Vial Sliding Scale -) 1 vial SQ ACHS [facility] PRN Reason: Protocol Last Admin: 06/19/16 21:49 Dose: 2 units Magnesium Oxide (Mag-Ox -) 400 mg PO DAILY [facility] Last Admin: 06/19/16 10:00 Dose: 400 mg Metoclopramide HCl (Reglan Injection -) 10 mg IVPB Q8H PRN PRN Reason: NAUSEA AND/OR VOMITING Last Admin: 06/19/16 06:52 Dose: 10 mg Morphine Sulfate (Morphine Injection -) 2 mg IVPUSH Q4H PRN PRN Reason: PAIN Last Admin: 06/19/16 21:52 Dose: 2 mg Nebivolol (Bystolic -) 10 mg PO DAILY [facility] Last Admin: 06/19/16 11:02 Dose: 10 mg Ondansetron HCl (Zofran Injection) 4 mg IVPB Q6H PRN PRN Reason: NAUSEA Last Admin: 06/19/16 09:58 Dose: 4 mg Pantoprazole Sodium (Protonix -) 40 mg PO DAILY [facility] Last Admin: 06/19/16 11:01 Dose: 40 mg Potassium Chloride (K-Dur -) 20 meq PO DAILY [facility] Last Admin: 06/19/16 11:00 Dose: 20 meq - Objective Vital Signs: Vital Signs Temperature 97.9 F 06/19/16 18:01 Pulse Rate 90 06/19/16 18:01 Respiratory Rate 20 06/19/16 18:01 Blood Pressure 141/98 06/19/16 18:01 O2 Sat by Pulse Oximetry (%) 93 L 06/19/16 11:00 Constitutional: Yes: Well Nourished, Obese Neck: Yes: Supple Cardiovascular: Yes: WNL, Regular Rate and Rhythm, Murmur Respiratory: Yes: WNL, Regular, CTA Bilaterally Gastrointestinal: Yes: WNL, Normal Bowel Sounds, Soft, Abdomen, Obese Extremities: Yes: Other (chronic venous stasis w/ open ?blisters) Labs: CBC, BMP 06/19/16 06:10 06/19/16 06:10 Problem List - Problems (1) Pancreatitis Assessment/Plan: Pt did not want to do ct scan abd Amylase/lipase almost normal Gi consult appreciated Advance diet to see if tolerates Code(s): K85.90 - ACUTE PANCREATITIS WITHOUT NECROSIS OR INFECTION, UNSP Qualifiers: Chronicity: acute Pancreatitis type: other Acute pancreatitis complication: unspecified Qualified Code(s): K85.80 - Other acute pancreatitis without necrosis or infection; K85.8 - Other acute pancreatitis (2) Hypertension Assessment/Plan: BP accelerated Will dc IVF Adjust meds Check echo Cardio consult Code(s): I10 - ESSENTIAL (PRIMARY) HYPERTENSION (3) Type 2 diabetes mellitus with foot ulcer Assessment/Plan: Cont sliding scal w/ coverage Pt was to do hyperbaric treatments Wound care consult Code(s): E11.621 - TYPE 2 DIABETES MELLITUS WITH FOOT ULCER L97.509 - NON-PRESSURE CHRONIC ULCER OTH PRT UNSP FOOT W UNSP SEVERITY (4) CHF (congestive heart failure) Assessment/Plan: Cont lasix Monitor electrolytes Code(s): I50.9 - HEART FAILURE, UNSPECIFIED (5) Cyclical vomiting Code(s): G43.A0 - CYCLICAL VOMITING, NOT INTRACTABLE (6) Morbid obesity Code(s): E66.01 - MORBID (SEVERE) OBESITY DUE TO EXCESS CALORIES
[2016-06-20] MEDS: METRONIDAZOLE 500 MG PREMIXED 100 ML IVPB SCH ×2 (01:40→11:28)
[2016-06-20] MEDS: INSULIN SLIDING SCALE (NOVOLOG) 1 VIAL SQ SCH ×4 (07:00→21:55)
[2016-06-20 10:18] LABS: BASOPHIL 0.6 % (0-2.0); EOSINOPHIL 0.9 % (0-4.5); MCH 27.8 pg (25.7-33.7); MCHC 32.6 g/dl (32.0-35.9); MEAN CELL VOLUME 85.3 fl (80-96); MEAN PLT VOLUME 8.1 fl (7.5-11.1); NEUTROPHILS 72.8 % (42.8-82.8); PLATELET COUNT 252 K/MM3 (134-434); RDW 13.8 % (11.9-15.9); WHITE BLOOD COUNT 11.5 K/mm3 (4.0-10.0)
--- NOTE | 2016-06-20 10:24 | CON.CARD ---
Consult Consult Specialty:: Cardiology Referred by:: Dr. Brenner Reason for Consultation:: uncontrolled HTN, chronic CHF - History of Present Illness Chief Complaint: nausea and vomiting History of Present Illness: 30 year old man with a history of HTN, DMII, ETOH abuse, likely KARLO, h/o severe PAH, h/o NICM with chronic systolic CHF s/p ICD admitted with persistent nausea and vomiting. Pt noted to have uncontrolled HTN likely a combination of not tolerating po meds and discomfort from nausea and vomiting. BP has normalized today. Pt. seen and examined today in nad. denies any chest pain, sob, palpitations, lightheadedness, dizziness, syncope, near syncope. no pnd, orthopnea, or LE edema. - History Source History Provided By: Patient, Medical Record Limitations to Obtaining History: Poor Historian - Past Medical History Cardio/Vascular: Yes: CHF, HTN, Other (Morbid Obesity) Pulmonary: Yes: Asthma, Sleep Apnea Gastrointestinal: Yes: GERD Psych: Yes: Addictions Endocrine: Yes: Diabetes Mellitus, Other (morbid obesity) - Past Surgical History Past Surgical History: Yes: AICD (R Knee ORIF), Tonsillectomy - Alcohol/Substance Use Hx Alcohol Use: Yes (Periodic binging) History of Substance Use: reports: Marijuana Date of Last Use: 06/04/13 - Smoking History Smoking history: Never smoked Have you smoked in the past 12 months: No If you are a former smoker, when did you quit?: 7 years ago - Social History Usual Living Arrangement: Other ("homeless") Occupation: works at [employer] History of Recent Travel: No Home Medications - Allergies Allergies/Adverse Reactions: Allergies Allergy/AdvReac Type Severity Reaction Status Date / Time shellfish derived Allergy Verified 06/17/16 15:39 amoxicillin [Amoxicillin] AdvReac Verified 06/17/16 15:39 allupent Allergy Uncoded 06/17/16 15:39 - Home Medications Home Medications: Ambulatory Orders Amlodipine Besylate [Norvasc -] 10 mg PO DAILY 06/17/16 Aspirin [ASA -] 81 mg PO DAILY 06/17/16 Carvedilol 25 mg PO DAILY 06/17/16 Esomeprazole Magnesium [Nexium 24Hr] 40 mg PO DAILY 06/17/16 Furosemide [Lasix] 80 mg PO DAILY 06/17/16 Hydralazine HCl 100 mg PO BID 06/17/16 Hydrochlorothiazide 25 mg PO DAILY 06/17/16 Magnesium Oxide [Magox 400] 400 mg PO DAILY 06/17/16 Metoclopramide HCl 10 mg PO TID 06/17/16 Nebivolol HCl [Bystolic] 10 mg PO DAILY 06/17/16 Potassium Chloride 20 meq PO DAILY 06/17/16 Family Disease History - Family Disease History Family Disease History: Heart Disease: Mother (HTN) Review of Systems - Review of Systems Constitutional: reports: Loss of Appetite. denies: No Symptoms, Chills, Diaphoresis, Fever, Lethargy, Malaise, Night Sweats, Unintentional Wgt. Loss, Weakness, Other Eyes: denies: No Symptoms, Blind Spots, Blurred Vision, Double Vision, Eye Pain , Floaters, Photophobia, Recent Change in Vision, Other HENT: denies: No Symptoms, Difficult Swallowing, Ear Discharge, Ear Pain, Epistaxis, Gingival Bleeding, Hearing Loss, Mouth Swelling, Nasal Congestion, Ocular Prosthesis, Throat Pain, Toothache, Ringing in Ears, Other Neck: denies: No Symptoms, Decreased ROM, Lumps, Pain on Movement, Stiffness, Swollen Glands, Tenderness, Other Cardiovascular: denies: No Symptoms, Chest Pain, Edema, Palpitations, Shortness of Breath, Other Respiratory: denies: No Symptoms, Cough, Exercise Intolerance, Hemoptysis, Orthopnea, PND, Snoring, SOB, SOB on Exertion, Wheezing, Other Gastrointestinal: reports: Indigestion, Nausea, Vomiting. denies: No Symptoms, Abdominal Pain, Bloating, Constipation, Diarrhea, Dysphagia, Melena, Rectal Bleeding, Vomiting Blood, Other Genitourinary: denies: No Symptoms, Burning, Discharge, Dysuria, Flank Pain, Frequency, Hematuria, Incontinence, Lesions, Menses, Pain, Testicular Mass, Testicular Pain, Testicular Swelling, Urgency, Vaginal Bleeding, Other Breasts: denies: No Symptoms Reported, See HPI, Breast Implants, Discharge from Nipple, Lumps, Pain, Skin Changes, Other Musculoskeletal: denies: No Symptoms, Back Pain, Crepitus, Decreased ROM, Extremity Pain, Joint Pain, Joint Swelling, Muscle Pain, Muscle Cramps, Muscle Weakness, Other Integumentary: denies: No Symptoms, Blister, Bruising, Change in Color, Eczema, Erythema, Incision, Lesions, Lump, Pallor, Pruritis, Rash, Wound, Other Neurological: denies: No Symptoms, Change in LOC, Change in Speech, Confusion, Dizziness, Headache, Incoordination, Numbness, Parasthesia, Pre-Existing Deficit , Seizure, Syncope, Tremors, Unsteady Gait, Weakness, Other Endocrine: denies: No Symptoms, Excessive Sweating, Flushing, Increased Hunger, Increased Thirst, Intolerance to Cold, Intolerance to Heat, Unexplained Weight Gain, Unexplained Weight Loss, Other Hematology/Lymphatic: denies: No Symptoms, Easily Bruised, Excessive Bleeding, Swollen Glands, Other Psychiatric: denies: No Symptoms, Altered Sleep Pattern, Anxiety, Depression, Hallucinations, Panic, Paranoia, Suicidal, Other - Risk Factors Known Risk Factors: Yes: Hypertension Vital Signs: Vital Signs Temperature 97.9 F 06/20/16 06:00 Pulse Rate 87 06/20/16 06:00 Respiratory Rate 20 06/20/16 06:00 Blood Pressure 116/82 06/20/16 06:00 O2 Sat by Pulse Oximetry (%) 99 06/19/16 21:00 Constitutional: Yes: No Distress, Calm, Obese Eyes: Yes: Conjunctiva Clear, EOM Intact, PERRL HENT: Yes: Atraumatic, Normocephalic Neck: Yes: Supple, Trachea Midline Respiratory: Yes: Regular, CTA Bilaterally. No: Rales, Rhonchi, Wheezes Gastrointestinal: Yes: Normal Bowel Sounds, Soft. No: Distention, Tenderness Cardiovascular: Yes: Regular Rate and Rhythm. No: Bradycardia, Tachycardia, Pulse Irregular, Gallop, Rub, Varicosities JVD: No Carotid Bruit: No PMI: Non-Displaced Heart Sounds: Yes: S1, S2. No: Split S2, S3, S4, Clicks, Gallop, Rub, Bruit Murmur: No: Systolic Murmur, Diastolic Murmur Musculoskeletal: Yes: WNL Extremities: Yes: WNL Edema: No Peripheral Pulses WNL: Yes Peripheral Pulses: 2+ Left Doralis Pedis, 2+ Right Dorsalis Pedis Integumentary: Yes: WNL Neurological: Yes: WNL, Alert, Oriented, Cran Nerves II-XII Intact ...Motor Strength: WNL Psychiatric: Yes: WNL, Alert, Oriented - Other Data Labs, Other Data: Laboratory Tests 06/19/16 06/19/16 06:10 06:10 WBC 13.2 H Hgb 12.4 Hct 37.7 Plt Count 212 Sodium 137 Potassium 3.7 Chloride 96 L Carbon Dioxide 29 Anion Gap 12 BUN 16 Creatinine 1.0 D Random Glucose 175 H D Calcium 8.6 Total Bilirubin 0.6 D AST 15 ALT 12 Alkaline Phosphatase 92 Total Protein 8.2 Albumin 3.0 L Lipase 299 ekg-not in chart Echo: Report Reviewed Imaging - Results Chest X-ray: Report Reviewed, Image Reviewed EKG: Report Reviewed, Image Reviewed Other: Report Reviewed, Image Reviewed Assessment/Plan 30 year old man with a history of HTN, DMII, ETOH abuse, likely KARLO, h/o severe PAH, h/o NICM with chronic systolic CHF s/p ICD admitted with persistent nausea and vomiting. Pt noted to have uncontrolled HTN likely a combination of not tolerating po meds and discomfort from nausea and vomiting. BP has normalized today. HTN-severely uncontrolled during admission, has improved to goal today, likely exacerbated by intolerance to po intake and meds as well as persistent nausea and vomiting -would clarify why pt is receiving both Bystolic and Carvedilol, not clear as these are both bblockers -also not clear as to why pt is not on an ESCOBAR-I or ARB given history of CHF (no allergy is reported, and creatinine and K+ are wnl) -would clarify home medication list -for now will dc Bystolic and change Coreg to 25mg bid -will add Lisinopril 10mg po daily with plan to uptitrate as needed (again clarify if there is a contraindication to ESCOBAR-I/ARBs) -cont Hydralazine 100mg bid -cont Norvasc 10mg daily -cont Lasix 80mg po daily -can add Imdur to Hydralazine if needed given h/o CHF or can be changed to Bidil NICM-with Chronic systolic HF, s/p ICD, secondary to med non-compliance, severe uncontrolled HTN -euvolemic, no sign of decompensated CHF -medication adjustments as above in HTN section -pt states he has an appointment with his outpatient home and school visitor this tuesday which he plans to keep h/o Pulm HTN -likely secondary to LV dysfunction or KARLO -work up and treatment for KARLO as outpt No additional planned inpatient cardiac work up at this point
[2016-06-20] MEDS: ONDANSETRON 4 MG/2 ML VIAL IVPB PRN (10:50)
[2016-06-20] MEDS: HEPARIN NA (PORCINE) 5,000 UNITS/ML 1ML VIAL SQ SCH ×2 (10:50→21:46)
[2016-06-20 11:17] LABS: ALBUMIN 3.4 g/dl (3.4-5.0); ALK PHOS 100 U/L (45-117); ANION GAP 9 (8-16); BILIRUBIN,TOTAL 0.6 mg/dL (0.2-1.0); CO2 28 mmol/L (21-32); CREATININE 1.2 mg/dL (0.7-1.3); GLUCOSE,RANDOM 173 mg/dL (74-106); SGOT/AST 11 U/L (15-37); SGPT/ALT 12 U/L (12-78)
[2016-06-20] MEDS: LISINOPRIL 10 MG TABLET (FP) PO SCH (11:28)
[2016-06-20] MEDS: amLODIPine BESYLATE 10 MG TABLET (FP) PO SCH (11:29)
[2016-06-20] MEDS: hydrALAZINE HCL 50 MG TABLET (FP) PO SCH ×2 (11:29→21:46)
[2016-06-20] MEDS: PANTOPRAZOLE 40 MG TABLET (FP) PO SCH (11:29)
[2016-06-20] MEDS: FUROSEMIDE 40 MG TABLET (FP) PO SCH (11:29)
[2016-06-20] MEDS: MAGNESIUM OXIDE 400 MG TABLET (FP) PO SCH (11:29)
[2016-06-20] MEDS: ASPIRIN 81 MG CHEWABLE TABLETS PO SCH (11:30)
[2016-06-20] MEDS: POTASSIUM CHLORIDE TABS 20 MEQ TABLET.ER (FP) PO SCH (11:30)
[2016-06-20] MEDS: LEVOFLOXACIN 500 MG IVPB 100 ML IVPB SCH (12:13)
[2016-06-20] MEDS ORDERED: NIFEdipine E.R. 30 MG TABLET (FP) PO SCH (14:00)
[2016-06-20] MEDS ORDERED: ISOSORBIDE MONONITRATE 30 MG TAB.SR.24H (FP) PO SCH (14:00)
--- NOTE | 2016-06-20 17:16 | PN ---
Progress Note, Physician History of Present Illness: patient stable no new issues - Current Medication List Current Medications: Active Medications Aspirin (Asa -) 81 mg PO DAILY [facility] Last Admin: 06/20/16 11:30 Dose: 81 mg Carvedilol (Coreg -) 25 mg PO BID [facility] Collagenase (Santyl -) 1 applic TP DAILY [facility] Last Admin: 06/19/16 13:00 Dose: 1 applic Furosemide (Lasix -) 80 mg PO DAILY [facility] Last Admin: 06/20/16 11:29 Dose: 80 mg Heparin Sodium (Porcine) (Heparin -) 5,000 unit SQ BID [facility] Last Admin: 06/20/16 10:50 Dose: 5,000 unit Hydralazine HCl (Apresoline -) 100 mg PO BID [facility] Last Admin: 06/20/16 11:29 Dose: 100 mg Metronidazole (Flagyl 500mg Premixed Ivpb -) 100 mls @ 100 mls/hr IVPB Q8H-IV [facility] Last Admin: 06/20/16 11:28 Dose: 100 mls/hr Levofloxacin (Levaquin 500 Mg Premixed Ivpb -) 100 mls @ 100 mls/hr IVPB DAILY [facility] Last Admin: 06/20/16 12:13 Dose: 100 mls/hr Insulin Aspart (Novolog Vial Sliding Scale -) 1 vial SQ ACHS [facility] PRN Reason: Protocol Last Admin: 06/20/16 17:09 Dose: 2 units Lisinopril (Prinivil) 10 mg PO DAILY [facility] Last Admin: 06/20/16 11:28 Dose: 10 mg Magnesium Oxide (Mag-Ox -) 400 mg PO DAILY [facility] Last Admin: 06/20/16 11:29 Dose: 400 mg Metoclopramide HCl (Reglan Injection -) 10 mg IVPB Q8H PRN PRN Reason: NAUSEA AND/OR VOMITING Last Admin: 06/19/16 06:52 Dose: 10 mg Nifedipine (Procardia Xl -) 30 mg PO BID [facility] Ondansetron HCl (Zofran Injection) 4 mg IVPB Q6H PRN PRN Reason: NAUSEA Last Admin: 06/20/16 10:50 Dose: 4 mg Pantoprazole Sodium (Protonix -) 40 mg PO DAILY [facility] Last Admin: 06/20/16 11:29 Dose: 40 mg Potassium Chloride (K-Dur -) 20 meq PO DAILY [facility] Last Admin: 06/20/16 11:30 Dose: 20 meq - Objective Vital Signs: Vital Signs Temperature 98.3 F 06/20/16 16:51 Pulse Rate 89 06/20/16 16:51 Respiratory Rate 20 06/20/16 16:51 Blood Pressure 179/96 06/20/16 16:51 O2 Sat by Pulse Oximetry (%) 92 L 06/20/16 11:00 Constitutional: Yes: No Distress, Calm, Obese Cardiovascular: Yes: Regular Rate and Rhythm Respiratory: Yes: Regular, CTA Bilaterally Gastrointestinal: Yes: Normal Bowel Sounds, Soft Musculoskeletal: Yes: WNL Extremities: Yes: Other Integumentary: Yes: Bruising, Other Neurological: Yes: Alert, Oriented Psychiatric: Yes: Alert Labs: CBC, BMP 06/20/16 09:49 06/20/16 09:49 Assessment/Plan Problem List - Problems (1) Pancreatitis Assessment/Plan: MILD PANCREATITIS BY EDWARDO CRITERIA, SEEMS RESOLVING, DECREASE IVF TO 150 CC/ HR WILL RE ASCESS IN AM, NPO EXCEPT ICE CHIPS, PRN REGLAN, REPEAT LABS, CT SCAN IN AM Code(s): K85.90 - ACUTE PANCREATITIS WITHOUT NECROSIS OR INFECTION, UNSP Qualifiers: Chronicity: acute Pancreatitis type: other Acute pancreatitis complication: unspecified Qualified Code(s): K85.80 - Other acute pancreatitis without necrosis or infection; K85.8 - Other acute pancreatitis (2) Cyclical vomiting Assessment/Plan: NAUSEA MAY BE RELATED TO THIS Code(s): G43.A0 - CYCLICAL VOMITING, NOT INTRACTABLE (3) Morbid obesity Code(s): E66.01 - MORBID (SEVERE) OBESITY DUE TO EXCESS CALORIES (4) Nausea and vomiting Assessment/Plan: ABOVE, PRN REGLAN, IV PROTONIX Code(s): R11.2 - NAUSEA WITH VOMITING, UNSPECIFIED (5) Type 2 diabetes mellitus with foot ulcer Code(s): E11.621 - TYPE 2 DIABETES MELLITUS WITH FOOT ULCER L97.509 - NON-PRESSURE CHRONIC ULCER OTH PRT UNSP FOOT W UNSP SEVERITY (6) Essential (primary) hypertension Code(s): I10 - ESSENTIAL (PRIMARY) HYPERTENSION (7) Cardiomyopathy associated with type 1 diabetes mellitus Code(s): E10.59 - TYPE 1 DIABETES MELLITUS WITH OTH CIRCULATORY COMPLICATIONS I43 - CARDIOMYOPATHY IN DISEASES CLASSIFIED ELSEWHERE plan continue abx as per gi consider ortho or foot
--- NOTE | 2016-06-20 17:47 | PN ---
Progress Note, Physician History of Present Illness: Pt tolerateing diet but has not gotten up out of bed and is just sleeping - Current Medication List Current Medications: Active Medications Aspirin (Asa -) 81 mg PO DAILY [facility] Last Admin: 06/20/16 11:30 Dose: 81 mg Carvedilol (Coreg -) 25 mg PO BID [facility] Collagenase (Santyl -) 1 applic TP DAILY [facility] Last Admin: 06/19/16 13:00 Dose: 1 applic Furosemide (Lasix -) 80 mg PO DAILY [facility] Last Admin: 06/20/16 11:29 Dose: 80 mg Heparin Sodium (Porcine) (Heparin -) 5,000 unit SQ BID [facility] Last Admin: 06/20/16 10:50 Dose: 5,000 unit Hydralazine HCl (Apresoline -) 100 mg PO BID [facility] Last Admin: 06/20/16 11:29 Dose: 100 mg Metronidazole (Flagyl 500mg Premixed Ivpb -) 100 mls @ 100 mls/hr IVPB Q8H-IV [facility] Last Admin: 06/20/16 11:28 Dose: 100 mls/hr Levofloxacin (Levaquin 500 Mg Premixed Ivpb -) 100 mls @ 100 mls/hr IVPB DAILY [facility] Last Admin: 06/20/16 12:13 Dose: 100 mls/hr Insulin Aspart (Novolog Vial Sliding Scale -) 1 vial SQ ACHS [facility] PRN Reason: Protocol Last Admin: 06/20/16 17:09 Dose: 2 units Lisinopril (Prinivil) 10 mg PO DAILY [facility] Last Admin: 06/20/16 11:28 Dose: 10 mg Magnesium Oxide (Mag-Ox -) 400 mg PO DAILY [facility] Last Admin: 06/20/16 11:29 Dose: 400 mg Metoclopramide HCl (Reglan Injection -) 10 mg IVPB Q8H PRN PRN Reason: NAUSEA AND/OR VOMITING Last Admin: 06/19/16 06:52 Dose: 10 mg Nifedipine (Procardia Xl -) 30 mg PO BID [facility] Ondansetron HCl (Zofran Injection) 4 mg IVPB Q6H PRN PRN Reason: NAUSEA Last Admin: 06/20/16 10:50 Dose: 4 mg Pantoprazole Sodium (Protonix -) 40 mg PO DAILY [facility] Last Admin: 06/20/16 11:29 Dose: 40 mg Potassium Chloride (K-Dur -) 20 meq PO DAILY [facility] Last Admin: 06/20/16 11:30 Dose: 20 meq - Objective Vital Signs: Vital Signs Temperature 98.3 F 06/20/16 16:51 Pulse Rate 89 06/20/16 16:51 Respiratory Rate 20 06/20/16 16:51 Blood Pressure 179/96 06/20/16 16:51 O2 Sat by Pulse Oximetry (%) 92 L 06/20/16 11:00 Constitutional: Yes: Obese Neck: Yes: Supple Cardiovascular: Yes: WNL, Regular Rate and Rhythm Respiratory: Yes: WNL, Regular, CTA Bilaterally Gastrointestinal: Yes: WNL, Normal Bowel Sounds, Soft, Abdomen, Obese Labs: CBC, BMP 06/20/16 09:49 06/20/16 09:49 Problem List - Problems (1) Pancreatitis Assessment/Plan: Pt did not want to do ct scan abd Amylase/lipase normal Gi consult appreciated Pt tolerating diet DC planning for am Code(s): K85.90 - ACUTE PANCREATITIS WITHOUT NECROSIS OR INFECTION, UNSP Qualifiers: Chronicity: acute Pancreatitis type: other Acute pancreatitis complication: unspecified Qualified Code(s): K85.80 - Other acute pancreatitis without necrosis or infection; K85.8 - Other acute pancreatitis (2) Hypertension Assessment/Plan: BP accelerated Lisinopril added As per cardio Code(s): I10 - ESSENTIAL (PRIMARY) HYPERTENSION (3) Type 2 diabetes mellitus with foot ulcer Assessment/Plan: Cont sliding scal w/ coverage Wound care consult Code(s): E11.621 - TYPE 2 DIABETES MELLITUS WITH FOOT ULCER L97.509 - NON-PRESSURE CHRONIC ULCER OTH PRT UNSP FOOT W UNSP SEVERITY (4) CHF (congestive heart failure) Code(s): I50.9 - HEART FAILURE, UNSPECIFIED (5) Cyclical vomiting Code(s): G43.A0 - CYCLICAL VOMITING, NOT INTRACTABLE (6) Morbid obesity Code(s): E66.01 - MORBID (SEVERE) OBESITY DUE TO EXCESS CALORIES
[2016-06-20] MEDS ORDERED: INSULIN (NOVOLOG) ASPART 100 UNITS/ML 10ML VIAL ONE ×2 (18:09→21:14)
[2016-06-20] MEDS ORDERED: CLINDAMYCIN IVPB 300 MG in DEXTROSE 5%-WATER - 48 ML IVPB SCH (18:30)
[2016-06-20] MEDS: COLLAGENASE CLOSTRIDIUM HIST. 30 GRAMS TUBE TP SCH (18:41)
[2016-06-20] MEDS: CARVEDILOL 25 MG TABLET (FP) PO SCH (21:46)
[2016-06-20] MEDS: NIFEdipine E.R. 30 MG TABLET (FP) PO SCH (21:46)
[2016-06-21] MEDS: CLINDAMYCIN 300 MG PREMIX IVPB 50 ML IVPB SCH ×2 (01:45→10:15)
[2016-06-21] MEDS: NIFEdipine E.R. 30 MG TABLET (FP) PO SCH ×2 (04:07→10:14)
[2016-06-21] MEDS: INSULIN SLIDING SCALE (NOVOLOG) 1 VIAL SQ SCH ×2 (06:31→11:13)
[2016-06-21] MEDS ORDERED: INSULIN (NOVOLOG) ASPART 100 UNITS/ML 10ML VIAL ONE ×2 (06:36→12:03)
[2016-06-21 08:50] LABS: BASOPHIL 0.8 % (0-2.0); EOSINOPHIL 1.2 % (0-4.5); MCH 28.5 pg (25.7-33.7); MCHC 33.4 g/dl (32.0-35.9); MEAN CELL VOLUME 85.4 fl (80-96); MEAN PLT VOLUME 8.3 fl (7.5-11.1); NEUTROPHILS 65.1 % (42.8-82.8); PLATELET COUNT 243 K/MM3 (134-434); WHITE BLOOD COUNT 9.5 K/mm3 (4.0-10.0)
[2016-06-21] MEDS ORDERED: PT OWN MED DRAWER 7, Y5N ONE (10:08)
[2016-06-21] MEDS: POTASSIUM CHLORIDE TABS 20 MEQ TABLET.ER (FP) PO SCH (10:12)
[2016-06-21] MEDS: HEPARIN NA (PORCINE) 5,000 UNITS/ML 1ML VIAL SQ SCH (10:12)
[2016-06-21] MEDS: PANTOPRAZOLE 40 MG TABLET (FP) PO SCH (10:12)
[2016-06-21] MEDS: hydrALAZINE HCL 50 MG TABLET (FP) PO SCH (10:13)
[2016-06-21] MEDS: MAGNESIUM OXIDE 400 MG TABLET (FP) PO SCH (10:13)
[2016-06-21] MEDS: CARVEDILOL 25 MG TABLET (FP) PO SCH (10:13)
[2016-06-21] MEDS: FUROSEMIDE 40 MG TABLET (FP) PO SCH (10:14)
[2016-06-21] MEDS: LISINOPRIL 10 MG TABLET (FP) PO SCH (10:15)
[2016-06-21] MEDS: ASPIRIN 81 MG CHEWABLE TABLETS PO SCH (10:15)
--- NOTE | 2016-06-21 11:40 | PN ---
Progress Note, Physician History of Present Illness: seen and examined today in nad. pt states he is very anxious due to his chronic anxiety exacerbated by being in the hospital. he states he wants to go home. he refused the adjustments in his medications that were made yesterday. - Current Medication List Current Medications: Active Medications Aspirin (Asa -) 81 mg PO DAILY [facility] Last Admin: 06/21/16 10:15 Dose: 81 mg Carvedilol (Coreg -) 25 mg PO BID [facility] Last Admin: 06/21/16 10:13 Dose: 25 mg Collagenase (Santyl -) 1 applic TP DAILY [facility] Last Admin: 06/20/16 18:41 Dose: 1 applic Furosemide (Lasix -) 80 mg PO DAILY [facility] Last Admin: 06/21/16 10:14 Dose: 80 mg Heparin Sodium (Porcine) (Heparin -) 5,000 unit SQ BID [facility] Last Admin: 06/21/16 10:12 Dose: 5,000 unit Hydralazine HCl (Apresoline -) 100 mg PO BID [facility] Last Admin: 06/21/16 10:13 Dose: 100 mg Clindamycin Phosphate (Cleocin 300 Mg Premix Ivpb) 50 mls @ 100 mls/hr IVPB Q8H -IV [facility] Last Admin: 06/21/16 10:15 Dose: 100 mls/hr Insulin Aspart (Novolog Vial Sliding Scale -) 1 vial SQ ACHS [facility] PRN Reason: Protocol Last Admin: 06/21/16 06:31 Dose: 2 units Lisinopril (Prinivil) 10 mg PO DAILY [facility] Last Admin: 06/21/16 10:15 Dose: Not Given Magnesium Oxide (Mag-Ox -) 400 mg PO DAILY [facility] Last Admin: 06/21/16 10:13 Dose: 400 mg Metoclopramide HCl (Reglan Injection -) 10 mg IVPB Q8H PRN PRN Reason: NAUSEA AND/OR VOMITING Last Admin: 06/19/16 06:52 Dose: 10 mg Nifedipine (Procardia Xl -) 30 mg PO BID [facility] Last Admin: 06/21/16 10:14 Dose: Not Given Ondansetron HCl (Zofran Injection) 4 mg IVPB Q6H PRN PRN Reason: NAUSEA Last Admin: 06/20/16 10:50 Dose: 4 mg Pantoprazole Sodium (Protonix -) 40 mg PO DAILY [facility] Last Admin: 06/21/16 10:12 Dose: 40 mg Potassium Chloride (K-Dur -) 20 meq PO DAILY [facility] Last Admin: 06/21/16 10:12 Dose: 20 meq - Objective Vital Signs: Vital Signs Temperature 98.6 F 06/21/16 10:44 Pulse Rate 82 06/21/16 10:44 Respiratory Rate 20 06/21/16 10:44 Blood Pressure 150/90 06/21/16 10:44 O2 Sat by Pulse Oximetry (%) 95 06/21/16 09:00 Constitutional: Yes: No Distress, Calm, Obese Eyes: Yes: Conjunctiva Clear, EOM Intact HENT: Yes: Atraumatic, Normocephalic Neck: Yes: Supple, Trachea Midline Cardiovascular: Yes: Regular Rate and Rhythm, S1, S2. No: Bradycardia, Tachycardia, Pulse Irregular, Bruit, JVD, Gallop, Murmur, Rub, S3, S4, Varicosities Respiratory: Yes: Regular, CTA Bilaterally. No: Rales, Rhonchi, Wheezes Gastrointestinal: Yes: Normal Bowel Sounds, Soft. No: Distention, Tenderness Edema: No Peripheral Pulses WNL: Yes Peripheral Pulses: Left Doralis Pedis: 2+, Right Dorsalis Pedis: 2+ Neurological: Yes: Alert, Oriented Psychiatric: Yes: Alert, Oriented Labs: CBC, BMP 06/21/16 08:15 06/20/16 09:49 - ....Imaging Chest X-ray: Report Reviewed, Image Reviewed EKG: Report Reviewed, Image Reviewed Other: Report Reviewed, Image Reviewed Assessment/Plan 30 year old man with a history of HTN, DMII, ETOH abuse, likely KARLO, h/o severe PAH, h/o NICM with chronic systolic CHF s/p ICD admitted with persistent nausea and vomiting. Pt noted to have uncontrolled HTN likely a combination of not tolerating po meds and discomfort from nausea and vomiting. BP has normalized today. HTN-Labile with periods of severely uncontrolled HTN and periods of normal to low normal BP -HTN currently adequately controlled -pt refused the adjustments that were made to his medications yesterday including addition of Lisinopril and change of norvasc to procardia -pt wishes to follow up with his assistant to the director this tuesday before any adjustments are made -resume his home medications due to the above discussion -no additional planned inpatient cardiac work up or treatment planned NICM-with Chronic systolic HF, s/p ICD, secondary to med non-compliance, severe uncontrolled HTN -euvolemic, no sign of decompensated CHF -medication adjustments attempted as per my note yesterday however pt refused any changes -pt will keep his appointment with his outpatient assistant to the director this tuesday h/o Pulm HTN -likely secondary to LV dysfunction or KARLO -work up and treatment for KARLO as outpt No additional planned inpatient cardiac work up at this point
--- NOTE | 2016-06-21 14:15 | PN ---
Progress Note, Physician History of Present Illness: patient stable no new issues - Current Medication List Current Medications: Active Medications Aspirin (Asa -) 81 mg PO DAILY [facility] Last Admin: 06/21/16 10:15 Dose: 81 mg Carvedilol (Coreg -) 25 mg PO BID [facility] Last Admin: 06/21/16 10:13 Dose: 25 mg Collagenase (Santyl -) 1 applic TP DAILY [facility] Last Admin: 06/20/16 18:41 Dose: 1 applic Furosemide (Lasix -) 80 mg PO DAILY [facility] Last Admin: 06/21/16 10:14 Dose: 80 mg Heparin Sodium (Porcine) (Heparin -) 5,000 unit SQ BID [facility] Last Admin: 06/21/16 10:12 Dose: 5,000 unit Hydralazine HCl (Apresoline -) 100 mg PO BID [facility] Last Admin: 06/21/16 10:13 Dose: 100 mg Insulin Aspart (Novolog Vial Sliding Scale -) 1 vial SQ ACHS [facility] PRN Reason: Protocol Last Admin: 06/21/16 11:13 Dose: 4 units Lisinopril (Prinivil) 10 mg PO DAILY [facility] Last Admin: 06/21/16 10:15 Dose: Not Given Magnesium Oxide (Mag-Ox -) 400 mg PO DAILY [facility] Last Admin: 06/21/16 10:13 Dose: 400 mg Metoclopramide HCl (Reglan Injection -) 10 mg IVPB Q8H PRN PRN Reason: NAUSEA AND/OR VOMITING Last Admin: 06/19/16 06:52 Dose: 10 mg Nifedipine (Procardia Xl -) 30 mg PO BID [facility] Last Admin: 06/21/16 10:14 Dose: Not Given Ondansetron HCl (Zofran Injection) 4 mg IVPB Q6H PRN PRN Reason: NAUSEA Last Admin: 06/20/16 10:50 Dose: 4 mg Pantoprazole Sodium (Protonix -) 40 mg PO DAILY [facility] Last Admin: 06/21/16 10:12 Dose: 40 mg Potassium Chloride (K-Dur -) 20 meq PO DAILY [facility] Last Admin: 06/21/16 10:12 Dose: 20 meq - Objective Vital Signs: Vital Signs Temperature 98.6 F 06/21/16 10:44 Pulse Rate 82 06/21/16 10:44 Respiratory Rate 20 06/21/16 10:44 Blood Pressure 150/90 06/21/16 10:44 O2 Sat by Pulse Oximetry (%) 95 06/21/16 09:00 Constitutional: Yes: No Distress, Calm, Obese (morbid) Cardiovascular: Yes: Regular Rate and Rhythm Respiratory: Yes: Regular, CTA Bilaterally Gastrointestinal: Yes: Normal Bowel Sounds, Soft Musculoskeletal: Yes: Other Extremities: Yes: Other Integumentary: Yes: Other Neurological: Yes: Alert, Oriented Psychiatric: Yes: Alert Labs: CBC, BMP 06/21/16 08:15 06/20/16 09:49 - ....Imaging X-ray: Report Reviewed, Image Reviewed Assessment/Plan Problem List - Problems (1) Pancreatitis Assessment/Plan: MILD PANCREATITIS BY EDWARDO CRITERIA, SEEMS RESOLVING, DECREASE IVF TO 150 CC/ HR WILL RE ASCESS IN AM, NPO EXCEPT ICE CHIPS, PRN REGLAN, REPEAT LABS, CT SCAN IN AM Code(s): K85.90 - ACUTE PANCREATITIS WITHOUT NECROSIS OR INFECTION, UNSP Qualifiers: Chronicity: acute Pancreatitis type: other Acute pancreatitis complication: unspecified Qualified Code(s): K85.80 - Other acute pancreatitis without necrosis or infection; K85.8 - Other acute pancreatitis (2) Cyclical vomiting Assessment/Plan: NAUSEA MAY BE RELATED TO THIS Code(s): G43.A0 - CYCLICAL VOMITING, NOT INTRACTABLE (3) Morbid obesity Code(s): E66.01 - MORBID (SEVERE) OBESITY DUE TO EXCESS CALORIES (4) Nausea and vomiting Assessment/Plan: ABOVE, PRN REGLAN, IV PROTONIX Code(s): R11.2 - NAUSEA WITH VOMITING, UNSPECIFIED (5) Type 2 diabetes mellitus with foot ulcer Code(s): E11.621 - TYPE 2 DIABETES MELLITUS WITH FOOT ULCER L97.509 - NON-PRESSURE CHRONIC ULCER OTH PRT UNSP FOOT W UNSP SEVERITY (6) Essential (primary) hypertension Code(s): I10 - ESSENTIAL (PRIMARY) HYPERTENSION (7) Cardiomyopathy associated with type 1 diabetes mellitus Code(s): E10.59 - TYPE 1 DIABETES MELLITUS WITH OTH CIRCULATORY COMPLICATIONS I43 - CARDIOMYOPATHY IN DISEASES CLASSIFIED ELSEWHERE plan according to podiatry they know the patient and not worried about infection in that view will stop abx patient to get hyperbaric treatment rest continue current mgmt
[2016-06-21 14:24] VITALS: BP 140/84; PULSE 93; TEMP 97.9
[2016-06-21] MEDS: COLLAGENASE CLOSTRIDIUM HIST. 30 GRAMS TUBE TP SCH (15:40)
== END 2016-06-21 15:51 | disposition home or self-care (01) | DRG 439 ==
LOC: JER 14:40 → JERBED 20:45 → J5S 22:50
PROVIDERS: ADMIT Internal Medicine; ATTEND Internal Medicine
DX: K85.90 Acute pancreatitis without necrosis or infection, unspecified (principal); Z68.42 Body mass index [BMI] 45.0-49.9, adult; I43 Cardiomyopathy in diseases classified elsewhere; I50.22 Chronic systolic (congestive) heart failure; G43.A0 Cyclical vomiting, in migraine, not intractable; E66.01 Morbid (severe) obesity due to excess calories; E11.621 Type 2 diabetes mellitus with foot ulcer; L97.519 Non-pressure chronic ulcer of other part of right foot with unspecified severity; I11.0 Hypertensive heart disease with heart failure; I27.2 Other secondary pulmonary hypertension
CPT/HCPCS: 36415; 73610-TC-LT; 73630-TC-LT; 76705-TC; 80053; 80061; 80076; 81003; 81015; 83690; 83721; 85025; 86140; 93306-TC; 99285-25; J1644

== ENCOUNTER 2016-07-27 08:57 | Observation (INO) | payer OTHER ==
[2016-07-27 09:19] VITALS: TEMP 98.4; BMI 44.6
--- NOTE | 2016-07-27 09:26 | PDOC ---
History of Present Illness - General History Source: Patient Exam Limitations: No Limitations <Avani Cosby - Last Filed: 07/27/16 12:08> <Rose Young - Last Filed: 07/27/16 18:13> - History of Present Illness Initial Comments: 07/27/16 11:11 - General History Source: Patient Exam Limitations: No Limitations - History of Present Illness Initial Comments: 07/27/16 09:40 The patient is a 30-year-old man, accompanied by family, with a past medical history of uncontrolled hypertension, adult onset diabetes mellitus age 16 (on a Basal/Bolus regimen with Lantus and Sliding Scale Coverage), morbid obesity, alcohol abuse, severe PAH, NICM with chronic systolic CHF s/p ICD placement, with low ejection fraction and KARLO who presents to the emergency department for further evaluation of an elevated blood pressure. Patient states that his blood pressure typically runs in the 130/90 range. He states that his blood pressure today was 196/130. He also states that his sugars have been running high ( reportes 250). He states that he has been feeling nauseous and reports several episodes of emesis for the past 3 days. He denies fever, chills, chest pain, increased bilateral leg swelling. No urinary complaints. Patient is a poor historian. HPI is limited. Pt was sent down from wound care, and has not taken any of his BP meds today Allergies: Amoxicillin. Shellfish. Past Surgical History: ICD placement. Social History: No tobacco use. Periodic binge drinking (socially). Marijuana use. Primary Care Physician: Dr. Melvin Nance Bowling Teacher: Dr. Randhawa Remainder of the review of systems is negative. <Avani Cosby - Last Filed: 07/27/16 11:11> 07/27/16 11:54 <Loretta Alexander - Last Filed: 07/28/16 16:32> - General Chief Complaint: Blood Pressure Problem Stated Complaint: Blood Pressure Problem Time Seen by Provider: 07/27/16 09:05 Past History <Avani Cosby - Last Filed: 07/27/16 12:08> <Rose Young - Last Filed: 07/27/16 18:13> - Past Medical History Asthma: Yes Cardiac Disorders: Yes CHF: Yes Diabetes: Yes HTN: Yes Suicide Attempt (Hx): No - Surgical History Cardiac Surgery: Yes (defibrillator) - Immunization History Immunization Up to Date: Yes - Psycho/Social/Smoking Cessation Hx Anxiety: No Suicidal Ideation: No Smoking History: Never smoked Have you smoked in the past 12 months: No If you are a former smoker, when did you quit?: 7 years ago Information on smoking cessation initiated: No Hx Alcohol Use: No Drug/Substance Use Hx: No Substance Use Type: None Hx Substance Use Treatment: Yes (He indicated that he drinks socially.) <Loretta Alexander - Last Filed: 07/28/16 16:32> - Past Medical History Allergies/Adverse Reactions: Allergies Allergy/AdvReac Type Severity Reaction Status Date / Time shellfish derived Allergy Verified 07/27/16 09:05 amoxicillin [Amoxicillin] AdvReac Verified 07/27/16 09:05 allupent Allergy Uncoded 07/27/16 09:05 Home Medications: Ambulatory Orders Amlodipine Besylate [Norvasc -] 10 mg PO DAILY 06/17/16 Aspirin [ASA -] 81 mg PO DAILY 06/17/16 Carvedilol 25 mg PO DAILY 06/17/16 Esomeprazole Magnesium [Nexium 24Hr] 40 mg PO DAILY 06/17/16 Furosemide [Lasix] 80 mg PO DAILY 06/17/16 Hydralazine HCl 100 mg PO BID 06/17/16 Hydrochlorothiazide 25 mg PO DAILY 06/17/16 Magnesium Oxide [Magox 400] 400 mg PO DAILY 06/17/16 Metoclopramide HCl 10 mg PO TID 06/17/16 Nebivolol HCl [Bystolic] 10 mg PO DAILY 06/17/16 Potassium Chloride 20 meq PO DAILY 06/17/16 Collagenase Clostridium Hist. [Santyl -] 1 applic TP DAILY #30 tube 06/21/16 Nebivolol [Bystolic -] 10 mg PO DAILY tab 06/21/16 Review of Systems - Review of Systems Able to Perform ROS?: Yes Comments:: 07/27/16 09:40 12 point review of systems is as per history of present illness and otherwise negative. <Avani Cosby - Last Filed: 07/27/16 12:08> *Physical Exam - Vital Signs Last Vital Signs Temp Pulse Resp BP Pulse Ox 98.4 F 89 16 184/108 94 L 04/25/17 09:02 07/27/16 09:52 07/27/16 09:52 07/27/16 09:52 07/27/16 09:52 <Avani Cosby - Last Filed: 07/27/16 12:08> - Vital Signs Last Vital Signs Temp Pulse Resp BP Pulse Ox 98.4 F 86 16 174/108 96 07/27/16 09:02 07/27/16 15:30 07/27/16 15:30 07/27/16 15:30 07/27/16 15:30 <Rose Young - Last Filed: 07/27/16 18:13> - Vital Signs Last Vital Signs Temp Pulse Resp BP Pulse Ox 98.4 F 93 H 18 170/109 100 07/27/16 09:02 07/27/16 09:02 07/27/16 09:02 07/27/16 09:02 07/27/16 09:02 - Physical Exam Comments: 07/27/16 09:29 Physical exam Last Vital Signs Temp Pulse Resp BP Pulse Ox 98.4 F 93 H 18 170/109 100 07/27/16 09:02 07/27/16 09:02 07/27/16 09:02 07/27/16 09:02 07/27/16 09:02 GENERAL: The patient is morbidly obese, answering questions, but seems intermittently a little lethargic HEAD: Normal with no signs of trauma. EYES: sclera anicteric, conjunctiva are normal. ENT: Moist mucous membranes. NECK: Normal range of motion, supple LUNGS: Breath sounds equal, clear to auscultation bilaterally. No wheezes, and no crackles. HEART: Regular rate and rhythm, normal S1 and S2 without murmur, rub or gallop. ABDOMEN: Soft, nontender, normoactive bowel sounds. No guarding, no rebound. No masses appreciated. EXTREMITIES: There is venous stasis changes in the lower extremities bilaterally There is minimal edema NEUROLOGICAL: Alert but intermittently a little lethargic, answering questions, moving all extremities equally, grossly nonfocal neurologic exam SKIN: Warm, Dry, <Loretta Alexander - Last Filed: 07/28/16 16:32> ED Treatment Course - LABORATORY CBC & Chemistry Diagram: 07/27/16 10:05 04/25/17 10:05 - ADDITIONAL ORDERS Additional order review: Laboratory Results 07/27/16 10:05 Acetone, Qual Negative 07/27/16 10:05 RBC 4.47 MCV 85.5 MCHC 32.1 RDW 13.9 MPV 8.3 - RADIOLOGY Radiograph Interpretation: 07/27/16 11:23 EXAM: CT/HEAD CT WITHOUT CONTRAST CT scan of the brain c-. IMPRESSION: Clinical formation. AMS. Comparison study CT brain December 31, 2007. Findings. Serial axial images of the brain were obtained from foramen magnum to the cranial vertex without intravenous contrast. The study was supplemented with computer-generated coronal and sagittal reconstruction images. Nursing Education Consultant image was reviewed. There is no evidence of acute subarachnoid hemorrhage, acute intra-axial or extra-axial fluid collection consistent with subdural or epidural hematoma. No mass effect, midline shift, acute territorial ischemic changes, herniation or edema is present. Normal lucia matter white matter differentiation. The CSF spaces are age-appropriate. No evidence of hydrocephalus. No evidence of tonsillar ectopia. Examination of the bone windows show no fracture. The visualized paranasal sinuses and mastoid air cells are clear. Symmetrical ocular globes. Unremarkable retro-orbital soft tissues. EXAM: RAD/CHEST X-RAY PORTABLE IMPRESSION: Left pacemaker with single intact lead. No evidence of pneumonia, CHF, pleural effusion or pneumothorax. Unremarkable contour of the cardiomediastinal silhouette. No bulky hilar adenopathy is seen. Intact visualized osseous structures. <Avani Cosby - Last Filed: 07/27/16 12:08> - LABORATORY CBC & Chemistry Diagram: 07/27/16 10:05 07/27/16 10:05 - ADDITIONAL ORDERS Additional order review: Laboratory Results 07/27/16 07/27/16 07/27/16 10:05 10:05 10:05 INR 1.09 Sodium 132 L Potassium 3.6 Chloride 92 L Carbon Dioxide 29 Anion Gap 11 BUN 18 Creatinine 1.3 Creat Clearance w eGFR > 60 Random Glucose 285 H D Calcium 9.0 Magnesium 1.6 L Total Bilirubin 0.5 AST 11 L ALT 15 D Alkaline Phosphatase 101 Creatine Kinase 97 Troponin I 0.03 D B-Natriuretic Peptide 469.98 H Total Protein 9.1 H Albumin 3.3 L Acetone, Qual Negative 07/27/16 10:05 RBC 4.47 MCV 85.5 MCHC 32.1 RDW 13.9 MPV 8.3 - Medications Given in the ED: ED Medications Discontinued Medications Generic Name Dose Route Start Last Admin Trade Name Trent PRN Reason Stop Dose Admin Amlodipine Besylate 10 mg 07/27/16 12:08 07/27/16 12:25 Norvasc - PO 07/27/16 12:09 10 mg ONCE ONE Administration Carvedilol 25 mg 07/27/16 11:53 07/27/16 12:01 Coreg - PO 07/27/16 11:54 25 mg ONCE ONE Administration Hydralazine HCl 100 mg 07/27/16 11:53 07/27/16 12:01 Apresoline - PO 07/27/16 11:54 100 mg ONCE ONE Administration Magnesium Sulfate 1 gm 07/27/16 13:33 07/27/16 15:08 Magnesium Sulfate IVPB 07/27/16 13:34 1 gm ONCE ONE Administration <Rose Young - Last Filed: 07/27/16 18:13> - LABORATORY CBC & Chemistry Diagram: 07/27/16 10:05 07/27/16 10:05 - RADIOLOGY Radiology Studies Ordered: Category Date Time Status HEAD CT WITHOUT CONTRAST [CT] Stat CT Scan 07/27/16 09:23 Ordered CHEST X-RAY PORTABLE* [RAD] Stat Radiology 07/27/16 09:23 Ordered <Loretta Alexander - Last Filed: 07/28/16 16:32> Medical Decision Making - Medical Decision Making 07/27/16 12:[address] Palmer. Spoke to office staff who states that Dr. Palmer does not admit and requests Hospitalist service. 07/27/16 12:08 MicroBlogged Hospitalist. <Avani Cosby - Last Filed: 07/27/16 12:08> - Medical Decision Making 07/27/16 09:31 Patient was sent from the [facility], he has not taken any of his medications at all today Will start giving his po BP meds EKG Normal sinus rhythm 91, left axis deviation -67 Normal [place] interval Left anterior hemiblock QTC [address]-T waves When compared to the EKG of 03/11/14 Today's EKG is essentially unchanged from the prior EKG 07/27/16 12:02 Laboratory Results - last 24 hr 07/27/16 07/27/16 07/27/16 10:05 10:05 10:05 WBC 12.2 H RBC 4.47 Hgb 12.3 Hct 38.2 MCV 85.5 MCHC 32.1 RDW 13.9 Plt Count 214 MPV 8.3 INR 1.09 Sodium 132 L Potassium 3.6 Chloride 92 L Carbon Dioxide 29 Anion Gap 11 BUN 18 Creatinine 1.3 Creat Clearance w eGFR > 60 Random Glucose 285 H D Calcium 9.0 Magnesium 1.6 L Total Bilirubin 0.5 AST 11 L ALT 15 D Alkaline Phosphatase 101 Creatine Kinase 97 Troponin I 0.03 D B-Natriuretic Peptide 469.98 H Total Protein 9.1 H Albumin 3.3 L Acetone, Qual 07/27/16 10:05 WBC RBC Hgb Hct MCV MCHC RDW Plt Count MPV INR Sodium Potassium Chloride Carbon Dioxide Anion Gap BUN Creatinine Creat Clearance w eGFR Random Glucose Calcium Magnesium Total Bilirubin AST ALT Alkaline Phosphatase Creatine Kinase Troponin I B-Natriuretic Peptide Total Protein Albumin Acetone, Qual Negative 07/27/16 12:03 CT head without NAD Chest x-ray- NAD 07/27/16 12:39 Case discussed with hospitalist-Will place in telemetry observation Impression-accelerated hypertension, poorly controlled diabetes, medication nonadherence <Loretta Alexander - Last Filed: 07/28/16 16:32> *DC/Admit/Observation/Transfer - Attestations Scribe Attestion: 07/27/16 09:41 Documentation prepared by Avani Cosby, acting as district medical examiner for Loretta Alexander MD. <Avani Cosby - Last Filed: 07/27/16 12:08> <Rose Young - Last Filed: 07/27/16 18:13> - Discharge Dispostion Admit: Yes <Loretta Alexander - Last Filed: 07/28/16 16:32> Diagnosis at time of Disposition: Accelerated hypertension, Poorly controlled diabetes mellitus - Discharge Dispostion Disposition: AGAINST MEDICAL ADVICE - Referrals
[2016-07-27 10:42] LABS: MCH 27.5 pg (25.7-33.7); MCHC 32.1 g/dl (32.0-35.9); MEAN CELL VOLUME 85.5 fl (80-96); MEAN PLT VOLUME 8.3 fl (7.5-11.1); PLATELET COUNT 214 K/MM3 (134-434); RDW 13.9 % (11.9-15.9); WHITE BLOOD COUNT 12.2 K/mm3 (4.0-10.0)
[2016-07-27 11:02] LABS: ALBUMIN 3.3 g/dl (3.4-5.0); ALK PHOS 101 U/L (45-117); ANION GAP 11 (8-16); BILIRUBIN,TOTAL 0.5 mg/dL (0.2-1.0); CO2 29 mmol/L (21-32); COCKROFT - GAULT 203.89; CREATININE 1.3 mg/dL (0.7-1.3); GLUCOSE,RANDOM 285 mg/dL (74-106); MAGNESIUM 1.6 mg/dL (1.8-2.4); SGOT/AST 11 U/L (15-37); SGPT/ALT 15 U/L (12-78); TOT PROT 9.1 g/dl (6.4-8.2)
[2016-07-27 11:05] LABS: TROPONIN I 0.03 ng/ml (0.00-0.05)
[2016-07-27 11:11] LABS: INR 1.09 (0.82-1.09)
[2016-07-27] MEDS ORDERED: hydrALAZINE HCL 50 MG TABLET (FP) PO ONE (11:53)
[2016-07-27] MEDS ORDERED: CARVEDILOL 25 MG TABLET (FP) PO ONE (11:53)
[2016-07-27] MEDS ORDERED: hydrALAZINE HCL 25 MG TABLET (FP) ONE ×2 (12:01→14:47)
[2016-07-27] MEDS ORDERED: CARVEDILOL 12.5 MG TABLET (FP) ONE (12:01)
[2016-07-27] MEDS ORDERED: amLODIPine BESYLATE 10 MG TABLET (FP) PO ONE (12:08)
[2016-07-27] MEDS ORDERED: NEBIVOLOL 10 MG TABLET (FP) PO SCH (13:00)
[2016-07-27] MEDS ORDERED: MAGNESIUM SULF 50% (8.12 MEQ/2 ML-1 GM VIAL) IVPB ONE (13:33)
[2016-07-27] MEDS ORDERED: HYDROCHLOROTHIAZIDE 25 MG TABLET (FP) PO SCH (13:45)
[2016-07-27] MEDS ORDERED: ASPIRIN 81 MG CHEWABLE TABLETS PO SCH (13:45)
[2016-07-27] MEDS ORDERED: ASPIRIN 81 MG CHEWABLE TABLETS ONE (14:47)
[2016-07-27] MEDS ORDERED: MAGNESIUM SULF 50% (8.12 MEQ/2 ML-1 GM VIAL) ONE (14:48)
--- NOTE | 2016-07-27 15:37 | HP ---
/CHIEF COMPLAINT: High blood pressure PCP: HISTORY OF PRESENT ILLNESS: 30 year old obese male who is sometimes non compliant with pmh of HTN, DM, Systolic heart failure, ICD, KARLO, PAH presented to the ED with BP 196/130. Upon arrival to the ED his blood pressure was 184/108. Pt has a history of uncontrolled blood pressure, Pt admitted to not have taken his medications this am. Pt denies headache, blurred vision, double, vision, dizziness or confusion , chest pain, palpitation, shortness of breath, no lower ext edema, no numbness or tingling, no focal weakness. Pt also complains of nausea and vomiting for since Tuesday. Pt has 3-4 episode of non bloody, no bilious vomiting. Pt has abdominal pain, no diarrhea, constipation, no sick contact, no flu/cold like symptoms. 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 Family History: Father and mother with diabetes and HTN Allergies shellfish derived Allergy (Verified 07/27/16 09:05) amoxicillin [Amoxicillin] Adverse Reaction (Verified 07/27/16 09:05) allupent Allergy (Uncoded 07/27/16 09:05) HOME MEDICATIONS: Home Medications Medication Instructions Recorded Amlodipine Besylate [Norvasc -] 10 mg PO DAILY 06/17/16 Aspirin [ASA -] 81 mg PO DAILY 06/17/16 Carvedilol 25 mg PO DAILY 06/17/16 Esomeprazole Magnesium [Nexium 40 mg PO DAILY 06/17/16 24Hr] Furosemide [Lasix] 80 mg PO DAILY 06/17/16 Hydralazine HCl 100 mg PO BID 06/17/16 Hydrochlorothiazide 25 mg PO DAILY 06/17/16 Magnesium Oxide [Magox 400] 400 mg PO DAILY 06/17/16 Metoclopramide HCl 10 mg PO TID 06/17/16 Nebivolol HCl [Bystolic] 10 mg PO DAILY 06/17/16 Potassium Chloride 20 meq PO DAILY 06/17/16 Collagenase Clostridium Hist. 1 applic TP DAILY #30 tube 06/21/16 [Santyl -] Nebivolol [Bystolic -] 10 mg PO DAILY tab 06/21/16 REVIEW OF SYSTEMS CONSTITUTIONAL: Absent: fever, chills, diaphoresis, generalized weakness, malaise, loss of appetite, weight change HEENT: Absent: rhinorrhea, nasal congestion, throat pain, throat swelling, difficulty swallowing, mouth swelling, ear pain, eye pain, visual changes CARDIOVASCULAR: Absent: chest pain, syncope, palpitations, irregular heart rate, lightheadedness , peripheral edema RESPIRATORY: Absent: cough, shortness of breath, dyspnea with exertion, orthopnea, wheezing, stridor, hemoptysis GASTROINTESTINAL:nausea, vomiting Absent: abdominal pain, abdominal distension,, diarrhea, constipation, melena, hematochezia GENITOURINARY: Absent: dysuria, frequency, urgency, hesitancy, hematuria, flank pain, genital pain MUSCULOSKELETAL: Absent: myalgia, arthralgia, joint swelling, back pain, neck pain SKIN: Absent: rash, itching, pallor HEMATOLOGIC/IMMUNOLOGIC: Absent: easy bleeding, easy bruising, lymphadenopathy, frequent infections ENDOCRINE: Absent: unexplained weight gain, unexplained weight loss, heat intolerance, cold intolerance NEUROLOGIC: Absent: headache, focal weakness or paresthesias, dizziness, unsteady gait, seizure, mental status changes, bladder or bowel incontinence PSYCHIATRIC: Absent: anxiety, depression, suicidal or homicidal ideation, hallucinations. PHYSICAL EXAMINATION GENERAL: Awake, alert, and fully oriented, in no acute distress. HEAD: Normal with no signs of trauma. EYES: Pupils equal, round and reactive to light, extraocular movements intact, sclera anicteric, conjunctiva clear. No lid lag. EARS, NOSE, THROAT: Ears normal, nares patent, oropharynx clear without exudates. Moist mucous membranes. NECK: Normal range of motion, supple without lymphadenopathy, JVD, or masses. LUNGS: Breath sounds equal, clear to auscultation bilaterally. No wheezes, and no crackles. No accessory muscle use. HEART: Regular rate and rhythm, normal S1 and S2 without murmur, rub or gallop. ABDOMEN: Obese, Soft, nontender, not distended, normoactive bowel sounds, no guarding, no rebound, no masses. No hepatomegaly or splenomegaly. MUSCULOSKELETAL: Normal range of motion at all joints. No bony deformities or tenderness. No CVA tenderness. UPPER EXTREMITIES: 2+ pulses, warm, well-perfused. No cyanosis. No clubbing. No peripheral edema. LOWER EXTREMITIES: 2+ pulses, warm, well-perfused. No calf tenderness. No peripheral edema. NEUROLOGICAL: Cranial nerves II-XII intact. Normal speech. Normal gait. normal strength in all ext PSYCHIATRIC: Cooperative. Good eye contact. Appropriate mood and affect. SKIN: Warm, dry, normal turgor, no rashes or lesions noted, normal capillary refill. CBC, BMP 07/27/16 10:05 07/27/16 10:05 Selected Entries 07/27/16 09:52 Blood Pressure 184/108 [Right] Laboratory Tests 07/27/16 07/27/16 10:05 10:05 INR 1.09 Magnesium 1.6 L Troponin I 0.03 D B-Natriuretic Peptide 469.98 H ASSESSMENT/PLAN: 30 year old obese male who is sometimes non compliant with pmh of HTN, DM, Systolic heart failure, ICD, KARLO, PAH presented to the ED with Hypertensive Urgency Hypertensive Urgency rt to medication non compliance Pt received Norvac PO, Coreg PO and Hydralazine in ED Last BP was 160/100 Goal is less than 160/90 Will Give Nebidolol, Lasix and HCTZ which are home medication Trend troponins, first one was negative Consider cardiology consult Consider Echocardiogram Consider Urine tox screen Diabetic Gastroperesis C/o n/v Reglan TID AC Zofran PRN Uncontrolled Diabetes Blood glucose 276 HgbA1c in am Pt said he take Lantus 40U qhs, Will have to verify dose in pharmacy or with PCP NOvolog sliding scale BGM ACHS Chronic systolic CHF s/o AICD Resume LAsix 80mg po daily On Coreg On Bystolic PAH likely rt to Left heart Failure Keep O2 sat above 90% PRN nasal cannula Outpatient follow with pulmonary and clinical systems analyst Obstructive sleep apnea Consider CPAP/BIPAP [facility] follow with [facility] Obesity Class III BMI 44.6 Weight loss counseling Oupatient exercise program if OK with cardiology FEN Fluid: none Electrolytes: no abnormalities Nutrition: diabetic diet DVT prophylaxis: SCD, Heparin SQ Disposition: Observation telemetry Visit type - Emergency Visit Emergency Visit: Yes ED Registration Date: 07/27/16 Care time: The patient presented to the Emergency Department on the above date and was hospitalized for further evaluation of their emergent condition. - New Patient This patient is new to me today: Yes - Critical Care Critical Care patient: No
[2016-07-27] MEDS ORDERED: INSULIN SLIDING SCALE (NOVOLOG) 1 VIAL SQ SCH (16:30)
[2016-07-27] MEDS ORDERED: METOCLOPRAMIDE HCL 10 MG TABLET (FP) PO SCH (16:30)
[2016-07-27] MEDS ORDERED: INSULIN (NOVOLOG) ASPART 100 UNITS/ML 10ML VIAL ONE (16:45)
[2016-07-27] MEDS ORDERED: PATIENT'S OWN MEDICATION (NON-FORMULARY) (Furosemide [Lasix] 80 MG) PO SCH (16:45)
[2016-07-27 16:52] VITALS: BP 174/108; PULSE 86
[2016-07-27 16:53] LABS: URINE APPEARANCE CLEAR; URINE BILIRUBIN NEGATIVE (NEGATIVE); URINE BLOOD NEGATIVE (NEGATIVE); URINE COLOR LTYELLOW; URINE GLUCOSE (UA) 3+ (NEGATIVE); URINE KETONE NEGATIVE (NEGATIVE); URINE LEUK ESTERASE NEGATIVE (NEGATIVE); URINE NITRITE NEGATIVE (NEGATIVE); URINE UROBILINOGEN NEGATIVE E.U./dl (0.2-1.0)
[2016-07-27 17:09] LABS: URINE PROTEIN 3+ (NEGATIVE)
[2016-07-27 17:21] LABS: URINE MUCUS RARE; URINE RBC 1 /hpf (0-3); URINE WBC 1 /hpf (3-5)
--- NOTE | 2016-07-27 18:10 | PN ---
Teaching Attending Note Name of Resident: Dylan Maurer ATTENDING PHYSICIAN STATEMENT I saw and evaluated the patient. I reviewed the resident's note and discussed the case with the resident. I agree with the resident's findings and plan as documented. SUBJECTIVE: OBJECTIVE: Vital Signs Period Temp Pulse Resp BP Sys/Bliss Pulse Ox Last 24 Hr 98.4 F 86-93 16-24 161-184/100-109 94-100 ASSESSMENT AND PLAN:
[2016-07-27] MEDS ORDERED: FUROSEMIDE 40 MG TABLET (FP) PO SCH (18:30)
[2016-07-27 18:46] LABS: TROPONIN I 0.04 ng/ml (0.00-0.05)
[2016-07-27] MEDS ORDERED: hydrALAZINE HCL 50 MG TABLET (FP) PO SCH (22:00)
[2016-07-28] MEDS ORDERED: hydrALAZINE HCL 50 MG TABLET (FP) PO SCH (08:00)
--- NOTE | 2016-07-28 08:18 | EKG ---
Test Reason : Blood Pressure : / mmHG Vent. Rate : 091 BPM Atrial Rate : 091 BPM P-R Int : 176 ms QRS Dur : 118 ms QT Int : 366 ms P-R-T Axes : 054 -67 062 degrees QTc Int : 450 ms NORMAL SINUS RHYTHM LEFT ANTERIOR FASCICULAR BLOCK ABNORMAL ECG WHEN COMPARED WITH ECG OF 11-MAR-2014 06:52, NO SIGNIFICANT CHANGE WAS FOUND Confirmed by VALERIA CARROLL MD ([id number]) on 07/28/2016 8:17:55 AM Referred By: Confirmed By:VALERIA CARROLL MD
[2016-07-28] MEDS ORDERED: COLLAGENASE CLOSTRIDIUM HIST. 30 GRAMS TUBE TP SCH (10:00)
[2016-07-28] MEDS ORDERED: CARVEDILOL 25 MG TABLET (FP) PO SCH (10:00)
[2016-07-28] MEDS ORDERED: amLODIPine BESYLATE 10 MG TABLET (FP) PO SCH (10:00)
[2016-07-28] MEDS ORDERED: POTASSIUM CHLORIDE TABS 20 MEQ TABLET.ER (FP) PO SCH (10:00)
[2016-07-28] MEDS ORDERED: PANTOPRAZOLE 40 MG TABLET (FP) PO SCH (10:00)
[2016-07-28] MEDS ORDERED: MAGNESIUM OXIDE 400 MG TABLET (FP) PO SCH (10:00)
--- NOTE | 2016-08-01 09:54 | DS ---
Physical Exam: SUBJECTIVE: Patient seen and examined OBJECTIVE: PHYSICAL EXAM Vital Signs Temperature 98.4 F 07/27/16 09:02 Pulse Rate 86 07/27/16 15:30 Respiratory Rate 16 07/27/16 15:30 Blood Pressure 174/108 07/27/16 15:30 O2 Sat by Pulse Oximetry (%) 96 07/27/16 15:30 LABS CBC, BMP 07/27/16 10:05 07/27/16 10:05 HOSPITAL COURSE: Date of Admission:07/27/16 30 year old obese male who is sometimes non compliant with pmh of HTN, DM, Systolic heart failure, ICD, KARLO, PAH presented to the ED with Hypertensive Urgency. Hypertensive Urgency rt to medication non compliance. Pt received Norvac PO, Coreg PO and Hydralazine in ED, Last BP was 160/100, Goal is less than 160/90. Gave Nebidolol, Lasix and HCTZ which are home medication. troponins was negative times 2. Pt has diabetic Gastroperesis, C/o n/v, treted w Reglan TID AC, Zofran PRN. Uncontrolled Diabetes, Blood glucose 276 on admission. Pt was placed on Novolog sliding scale with BGM ACHS. Pt has Chronic systolic CHF s/o AICD, Resume Lasix 80mg po daily, On Coreg, On Bystolic. Pt has PAH likely rt to Left heart Failure, we Kept O2 sat above 90%, PRN nasal cannula , Outpatient follow up with pulmonary and ell teacher. Pt has Obstructive sleep apnea, we recommended Outpatient follow with Pulmonary. Pt has Obesity Class III, BMI 44.6, Weight loss counseling, Oupatient exercise program if OK with cardiology. Pt left against medical advice. We recommend him to follow up With with PCP, cardiology and pulmonary within 1 week . Date of Discharge: 08/01/16 Minutes to complete discharge: 40 Discharge Summary Reason For Visit: MALIGNANT HYPERTENSION,POORLY CONTROLLED DIABETES - Instructions Referrals: Gustabo Nance [Primary Care Provider] - Disposition: AGAINST MEDICAL ADVICE - Home Medications Comprehensive Discharge Medication List: Ambulatory Orders Amlodipine Besylate [Norvasc -] 10 mg PO DAILY 06/17/16 Aspirin [ASA -] 81 mg PO DAILY 06/17/16 Carvedilol 25 mg PO DAILY 06/17/16 Esomeprazole Magnesium [Nexium 24Hr] 40 mg PO DAILY 06/17/16 Furosemide [Lasix] 80 mg PO DAILY 06/17/16 Hydralazine HCl 100 mg PO BID 06/17/16 Hydrochlorothiazide 25 mg PO DAILY 06/17/16 Magnesium Oxide [Magox 400] 400 mg PO DAILY 06/17/16 Metoclopramide HCl 10 mg PO TID 06/17/16 Nebivolol HCl [Bystolic] 10 mg PO DAILY 06/17/16 Potassium Chloride 20 meq PO DAILY 06/17/16 Collagenase Clostridium Hist. [Santyl -] 1 applic TP DAILY #30 tube 06/21/16 Nebivolol [Bystolic -] 10 mg PO DAILY tab 06/21/16 This patient is new to me today: Yes Emergency Visit: Yes ED Registration Date: 07/27/16 Care time: The patient presented to the Emergency Department on the above date and was hospitalized for further evaluation of their emergent condition. Critical Care patient: No - Discharge Referral [facility]erred to [facility] Med P.C.: No
== END 2016-07-27 18:18 | disposition left against medical advice (07) ==
LOC: JER 08:57 → JERBED 12:41
PROVIDERS: ADMIT Internal Medicine; ATTEND Internal Medicine
PROC: 3E033GC Introduction of Other Therapeutic Substance into Peripheral Vein, Percutaneous Approach (ICD-10-PCS; principal; 2016-07-27)
PROC: 3E013VG Introduction of Insulin into Subcutaneous Tissue, Percutaneous Approach (ICD-10-PCS; 2016-07-27)
DX: I10 Essential (primary) hypertension (principal); E11.65 Type 2 diabetes mellitus with hyperglycemia; Z79.4 Long term (current) use of insulin; E66.01 Morbid (severe) obesity due to excess calories; Z68.41 Body mass index [BMI] 40.0-44.9, adult; J45.909 Unspecified asthma, uncomplicated; Z95.810 Presence of automatic (implantable) cardiac defibrillator; G47.33 Obstructive sleep apnea (adult) (pediatric); I50.22 Chronic systolic (congestive) heart failure; I27.2 Other secondary pulmonary hypertension
CPT/HCPCS: 36415; 70450-TC; 71010-TC; 80053; 81003; 81015; 82009; 82550; 83735; 83880; 84484; 85027; 85610; 93005; 93010; 93306-TC; 99283-25; G0378